=== PATIENT | female | born 1980 | race African-American/Black ===

== ENCOUNTER 2018-05-20 12:42 | Day surgery (SDC) | payer OTHER ==
[2018-05-19 17:13] VITALS: BMI 38.9
--- NOTE | 2018-05-20 13:02 | HP ---
History & Physical Update - History History: No Change - Physical Physical: No Change - Assessment Assessment: No Change - Plan Plan: No Change (Agree with H&P from 05/19/18 - incomplete , plan for suction D&C.)
[2018-05-20] MEDS ORDERED: ACETAMINOPHEN 325 MG TABLET (FP) PO PRN (13:05)
[2018-05-20] MEDS ORDERED: IBUPROFEN 800 MG/8 ML IJ IVPB PRN (13:05)
[2018-05-20] MEDS ORDERED: LACTATED RINGERS SOLUTION 1,000 ML IV SCH (13:15)
[2018-05-20 13:25] LABS: HEMATOCRIT 31.7 % (32.4-45.2); HEMOGLOBIN 10.2 GM/dL (10.7-15.3); MCH 26.8 pg (25.7-33.7); MCHC 32.1 g/dl (32.0-36.0); MEAN CELL VOLUME 83.6 fl (80-96); MEAN PLT VOLUME 7.3 fl (7.5-11.1); PLATELET COUNT 252 K/MM3 (134-434); RDW 14.6 % (11.6-15.6); WHITE BLOOD COUNT 5.3 K/mm3 (4.0-10.0)
[2018-05-20] MEDS ORDERED: ceFAZolin 2 GRAM PREMIX BAG IVPB ONE (13:30)
[2018-05-20 13:58] LABS: ALBUMIN 3.5 g/dl (3.4-5.0); ALK PHOS 60 U/L (45-117); ANION GAP 9 MMOL/L (8-16); BILIRUBIN,TOTAL 0.2 mg/dL (0.2-1); BLOOD UREA NITROGEN 10 mg/dL (7-18); CALCIUM 8.8 mg/dL (8.5-10.1); CHLORIDE 108 mmol/L (98-107); CO2 24 mmol/L (21-32); CREATININE 0.9 mg/dL (0.55-1.3); GLUCOSE,RANDOM 85 mg/dL (74-106); POTASSIUM 3.9 mmol/L (3.5-5.1); SGOT/AST 14 U/L (15-37); SGPT/ALT 15 U/L (13-61); SODIUM 141 mmol/L (136-145)
[2018-05-20] MEDS ORDERED: MIDAZOLAM HCL 2 MG/2 ML SINGLE DOSE VIAL ONE (14:02)
[2018-05-20] MEDS ORDERED: ceFAZolin SODIUM 1 GM VIAL IVPB ONE (14:19)
[2018-05-20] MEDS ORDERED: PROPOFOL 20 ML ONE ×2 (14:19→14:31)
--- NOTE | 2018-05-20 14:48 | OP ---
Operative Note - Note: Operative Date: 05/20/18 ([id number]) Pre-Operative Diagnosis: incomplete Operation: suction D&C Findings: enlarged fibroid uterus retained products of conception Surgeon: Reema Wang Anesthesia: General (with LMA) Specimens Removed: products of conception Estimated Blood Loss (mls): 10 Operative Report Dictated: Yes
[2018-05-20] MEDS ORDERED: KETOROLAC TROMETHAMINE 30 MG/1 ML VIAL ONE (14:54)
[2018-05-20] MEDS ORDERED: oxyCODONE HCL 5 MG TABLET PO PRN (14:56)
[2018-05-20] MEDS ORDERED: ONDANSETRON 4 MG/2 ML VIAL IVPUSH PRN (14:56)
--- NOTE | 2018-05-20 15:13 | OP ---
DATE OF OPERATION: 05/20/2018 PREOPERATIVE DIAGNOSIS: Incomplete . POSTOPERATIVE DIAGNOSIS: Incomplete . PROCEDURE: Suction dilatation and curettage. SURGEON: Reema Wang DO ANESTHESIA: LMA. COMPLICATIONS: None. ESTIMATED BLOOD LOSS: 10 mL SPECIMENS REMOVED: Products of conception. DISPOSITION: Stable to PACU. COUNT: Sponge and instrument count reported to be correct. BRIEF HISTORY AND PROCEDURE: Patient is a 37-year-old female who had been seen in the office with positive test, and upon multiple ultrasound and blood work examinations, was found to have a missed . The patient initially elected to undergo spontaneous resolution and declined surgical intervention. However, after several weeks on ultrasound on May 19, 2018, was found to have retained products of conception, the patient elected to undergo a D&C procedure at this time. Consents were signed in the office that day. The patient was admitted to the hospital on May 20, 2018. Consents were reconfirmed. The patient was taken to the operating room. She was given LMA anesthesia and placed in the dorsal lithotomy position. Two grams of Ancef were administered, and a hard timeout was performed. She was prepped and draped in the usual fashion. A speculum was placed inside the vagina. The cervix was easily visualized and grasped with a single-tooth tenaculum, and the cervix was dilated to accommodate a size 7 suction curette which was advanced to the fundus of the uterus. Several passes of the suction curette were completed and 1 pass with the sharp curette, and all 4 ca of the uterus revealed adequate uterine cry. One final pass of the suction curette was completed at this time. All instruments were then removed from the vagina. Sponge and instrument counts were reported to be correct. Minimal bleeding was noted from the os, and tenaculum sites were hemostatic. The patient awoke from anesthesia in stable condition, recovering in the PACU at the time of this dictation. REEMA WANG DO /[id number]
[2018-05-20 17:54] VITALS: BP 118/63; PULSE 90
[2018-05-20 18:01] VITALS: TEMP 98
--- NOTE | 2018-05-24 15:18 | PATH ---
Surgical Pathology Report Patient Name: JACI LIN Med. Rec. #: [id number] /Age/Gender: 1980 (Age: 37) / F Account: [id number] Location: [facility] Taken: 05/20/2018 Received: 05/21/2018 Reported: 05/24/2018 Physicians: Reema Wang M.D. Specimen(s) Received PRODUCTS OF CONCEPTION Clinical History Incomplete Final Diagnosis PRODUCTS OF CONCEPTION, DILATION AND CURETTAGE: SCANT NECROTIC CHORIONIC VILLI, ACUTELY INFLAMED DECIDUA, AND GESTATIONAL ENDOMETRIUM CONSISTENT WITH PRODUCTS OF CONCEPTION. BENIGN CERVICAL TISSUE. Electronically Signed Izzy Wiggins M.D. Gross Description Received in formalin, labeled "products of conception", are multiple dark brown soft tissue measuring 3.5 x 3.5 x 0.3 cm in aggregate. The specimen is entirely submitted in 3 cassettes. SCOTTIE/05/21/2018 rama/05/21/2018
== END 2018-05-20 18:16 | disposition home or self-care (01) ==
LOC: JASU-SURG 12:42 → JOR 12:42 → JASU-SURG 18:16
PROVIDERS: ATTEND Obstetrics & Gynecology
PROC: 10D17ZZ Extraction of Products of Conception, Retained, Via Natural or Artificial Opening (ICD-10-PCS; principal; 2018-05-20 13:30)
DX: O03.4 Incomplete spontaneous abortion without complication (principal)
CPT/HCPCS: 36415; 80053; 84702; 85027; 86850; 86900; 86901; 88305-TC; 94760

== ENCOUNTER 2018-06-21 10:38 | Inpatient (IN) | payer OTHER ==
[2018-06-18 08:05] VITALS: BMI 38.9
[2018-06-21 12:07] LABS: BASO % 0.3 % (0-2.0); EOS % 0.7 % (0-4.5); HEMATOCRIT 21.2 % (32.4-45.2); LYMPH % 15.9 % (8-40); MCH 25.7 pg (25.7-33.7); MCHC 32.8 g/dl (32.0-36.0); MEAN CELL VOLUME 78.3 fl (80-96); MEAN PLT VOLUME 6.5 fl (7.5-11.1); MONO % 4.8 % (3.8-10.2); NEUT % 78.3 % (42.8-82.8); PLATELET COUNT 254 K/MM3 (134-434); RBC 2.71 M/mm3 (3.60-5.2); RDW 15.4 % (11.6-15.6); WHITE BLOOD COUNT 6.5 K/mm3 (4.0-10.0)
[2018-06-21 12:39] LABS: ALBUMIN 3.4 g/dl (3.4-5.0); ALK PHOS 66 U/L (45-117); ANION GAP 8 MMOL/L (8-16); BILIRUBIN,TOTAL 0.2 mg/dL (0.2-1); BLOOD UREA NITROGEN 13 mg/dL (7-18); CALCIUM 8.8 mg/dL (8.5-10.1); CHLORIDE 104 mmol/L (98-107); CO2 27 mmol/L (21-32); CREATININE 0.9 mg/dL (0.55-1.3); GLUCOSE,RANDOM 95 mg/dL (74-106); POTASSIUM 3.7 mmol/L (3.5-5.1); SGOT/AST 19 U/L (15-37); SGPT/ALT 18 U/L (13-61); SODIUM 139 mmol/L (136-145); TOT PROT 7.1 g/dl (6.4-8.2)
--- NOTE | 2018-06-21 13:23 | HP ---
Admitting History and Physical - Admission Chief Complaint: Abnormal bleeding, for surgery History of Present Illness: Pt is a 38 y/o female with known enlarged fibroid uterus who was scheduled for abdominal myomectomy several weeks past, however was found to be . The resulted in a missed and a suction D&C was performed in early May. The patient continued to have bleeding on and off throughout the month and was suspected to have retained products of conception as her test was still positive. The patient was then scheduled for a suction D&C and abdominal myomectomy. Upon admission to hospital for surgery patient was found to be anemic with Hgb 7.1 and Hct 21. History Source: Patient, Medical Record - Past Medical History Cardiovascular: No: HTN Pulmonary: No: COPD Gastrointestinal: No: GERD Reproductive: No: Ectopic ...LMP: 03/11/18 ...LMP Comment: bleeding since d&C ...: No (s/p missed , suction D&C performed may but now w/ retained POC) Heme/Onc: Yes: Anemia Psych: No: Anxiety, Bipolar, Depression - Past Surgical History Additional Past Surgical History: D&C - Smoking History Smoking history: Never smoked Aproximately how many cigarettes per day: 0 - Alcohol/Substance Use Hx Alcohol Use: Yes (socially) - Social History Usual Living Arrangement: Yes: With Spouse ADL: Independent History of Recent Travel: No Home Medications - Allergies Allergies/Adverse Reactions: Allergies Allergy/AdvReac Type Severity Reaction Status Date / Time No Known Allergies Allergy Verified 06/21/18 11:56 - Home Medications Home Medications: Ambulatory Orders Albuterol Sulfate [Proair Hfa] 8.5 gm IH BID 05/19/18 Acetaminophen [Tylenol -] 500 mg PO Q8H 06/18/18 Review of Systems - Review of Systems Constitutional: reports: No Symptoms Eyes: reports: No Symptoms HENT: reports: No Symptoms Neck: reports: No Symptoms Cardiovascular: reports: No Symptoms Respiratory: reports: No Symptoms Gastrointestinal: reports: No Symptoms Genitourinary: reports: Vaginal Bleeding Neurological: reports: Dizziness Psychiatric: reports: No Symptoms Physical Examination Vital Signs: Vital Signs Temperature 99.2 F 06/21/18 11:54 Pulse Rate 98 H 06/21/18 11:54 Respiratory Rate 16 06/21/18 11:54 Blood Pressure 109/78 06/21/18 11:54 O2 Sat by Pulse Oximetry (%) 100 06/21/18 11:54 Constitutional: Yes: Well Nourished, No Distress, Calm Eyes: Yes: Conjunctiva Clear, EOM Intact HENT: Yes: Atraumatic Neck: Yes: Supple Cardiovascular: Yes: Tachycardia Respiratory: Yes: WNL Gastrointestinal: Yes: Soft, Other (large fibroid uterus palpated) Renal/: Yes: Vaginal Bleeding Neurological: Yes: Alert, Oriented Psychiatric: Yes: Alert, Oriented Labs: CBC, BMP 06/21/18 11:40 06/21/18 11:40 Problem List - Problems (1) Vaginal bleeding Code(s): N93.9 - ABNORMAL UTERINE AND VAGINAL BLEEDING, UNSPECIFIED (2) Retained products of conception Code(s): WWC0224 - (3) Leiomyoma Code(s): D21.9 - BENIGN NEOPLASM OF CONNECTIVE AND OTHER SOFT TISSUE, UNSP Assessment/Plan 38 y/o initially admitted for D&C and abdominal myomectomy for retained products of conception and fibroids found to have Hgb 7.0 upon admission and admits to syncopal episode yesterday. Discussed with anesthesia - will need to transfuse and postpone surgery until tomorrow. Plan for admission, 2 units PRBC overnight, recheck CBC in a.m. will postpone surgery until tomorrow/after blood transfusion +BHCG - due to retained products, not new , planning for suction D&C NPO after midnight
[2018-06-21] MEDS ORDERED: ACETAMINOPHEN 500 MG TABLET (FP) PO ONE (16:00)
[2018-06-21] MEDS ORDERED: IBUPROFEN 400 MG TABLET (FP) PO ONE (16:00)
[2018-06-21] MEDS: ACETAMINOPHEN 500 MG TABLET (FP) PO PRN (16:57)
[2018-06-21] MEDS ORDERED: IBUPROFEN 400 MG TABLET (FP) PO PRN (17:03)
[2018-06-21] MEDS: ALBUTEROL SO4 8 GM HFA INHALER IH SCH (21:03)
[2018-06-22] MEDS ORDERED: LACTATED RINGERS SOLUTION 1,000 ML/1,000 ML INFUS.BAG IV SCH (06:00)
[2018-06-22 07:38] LABS: BASO % 0.4 % (0-2.0); EOS % 2.1 % (0-4.5); HEMOGLOBIN 8.1 GM/dL (10.7-15.3); LYMPH % 18.3 % (8-40); MCH 26.7 pg (25.7-33.7); MCHC 33.8 g/dl (32.0-36.0); MEAN PLT VOLUME 6.7 fl (7.5-11.1); MONO % 6.4 % (3.8-10.2); NEUT % 72.8 % (42.8-82.8); PLATELET COUNT 289 K/MM3 (134-434); RBC 3.04 M/mm3 (3.60-5.2); RDW 15.5 % (11.6-15.6); WHITE BLOOD COUNT 6.2 K/mm3 (4.0-10.0)
[2018-06-22 07:44] LABS: INR 1.21 (0.83-1.09); PROTHROMBIN TIME (PATIENT) 14.3 SEC (9.7-13.0)
[2018-06-22 07:47] LABS: ACTIVATED PTT 26.4 SECONDS (25.2-36.5)
[2018-06-22] MEDS ORDERED: DEXAMETHASONE SOD PHOSPHATE/PF 10 MG/ML SDV ONE (10:33)
[2018-06-22] MEDS ORDERED: BUPIVACAINE HCL/PF 0.25% (2.5MG/ML) 10 ML VIAL ONE (10:34)
[2018-06-22] MEDS ORDERED: MIDAZOLAM HCL 2 MG/2 ML SINGLE DOSE VIAL ONE ×3 (10:37→11:45)
[2018-06-22] MEDS ORDERED: oxyCODONE HCL 5 MG TABLET PO PRN ×2 (10:56)
[2018-06-22] MEDS ORDERED: PROMETHAZINE HCL 25 MG/1 ML VIAL IVPB PRN (10:56)
[2018-06-22] MEDS: ALBUTEROL SO4 8 GM HFA INHALER IH SCH ×2 (10:58→22:20)
[2018-06-22] MEDS ORDERED: LACTATED RINGERS SOLUTION 1,000 ML IV SCH (11:00)
[2018-06-22] MEDS ORDERED: PROPOFOL 20 ML ONE (11:45)
[2018-06-22] MEDS ORDERED: LIDOCAINE HCL/PF 2% SDV 5ML VIAL ONE (11:46)
[2018-06-22] MEDS ORDERED: KETOROLAC TROMETHAMINE 30 MG/1 ML VIAL ONE (11:47)
[2018-06-22] MEDS ORDERED: DEXAMETHASONE SOD PHOSPHATE 4 MG/1 ML VIAL ONE (11:47)
[2018-06-22] MEDS ORDERED: ceFAZolin SODIUM 1 GM VIAL IVPB ONE (12:30)
[2018-06-22] MEDS ORDERED: ceFAZolin SODIUM 1 GM VIAL ONE ×2 (12:31→17:04)
[2018-06-22] MEDS ORDERED: ROCURONIUM BROMIDE 50 MG/5 ML VIAL ONE (13:40)
--- NOTE | 2018-06-22 15:16 | OP ---
Operative Note - Note: Operative Date: 06/22/18 (dictation [id number]) Pre-Operative Diagnosis: Fibroid uterus, retained products of conception, AUB Operation: suction D&C. Abdominal myomectomy Findings: enlarged fibroid uterus normal b/l tubes and ovaries Post-Operative Diagnosis: Same as Pre-op Surgeon: Reema Wang Corporate Administrative Assistant: Maribell Maria Anesthesiologist/MICROSOFT APPLICATION DEVELOPER: Lina Thompson Anesthesia: General Specimens Removed: fibroids, products of conception Estimated Blood Loss (mls): 750
[2018-06-22] MEDS ORDERED: NEOSTIGMINE METHYLSULFATE 0.5 MG/1 ML - 10 ML MDV ONE (15:21)
[2018-06-22] MEDS ORDERED: GLYCOPYRROLATE 0.2 MG/1 ML VIAL ONE (15:22)
[2018-06-22] MEDS ORDERED: CEFAZOLIN 2 GM/D5W 2 GM/50 ML ML IVPB SCH (15:45)
[2018-06-22] MEDS ORDERED: ACETAMINOPHEN INJECTION 100 ML IVPB ONE (16:10)
[2018-06-22] MEDS ORDERED: HYDROmorphone *PCA* 10MG/50ML DISP.SYRIN PCA ONE (16:10)
[2018-06-22] MEDS: ACETAMINOPHEN 500 MG TABLET (FP) PO PRN (16:15)
[2018-06-22] MEDS ORDERED: HYDROmorphone *PCA* 10MG/50ML DISP.SYRIN PCA SCH (16:15)
[2018-06-22] MEDS ORDERED: ALBUTEROL SO4 0.083% IH SOL 2.5 MG/3 ML VIAL.NEB. NEB PRN (16:16)
--- NOTE | 2018-06-22 16:21 | OP ---
DATE OF OPERATION: 06/22/2018 PREOPERATIVE DIAGNOSIS: Retained products of conception, large fibroid uterus. PROCEDURE: Suction dilatation and curettage. SURGEON: Reema Wang DO ANESTHESIA: General. COMPLICATIONS: None. ESTIMATED BLOOD LOSS: 750 mL SPECIMENS REMOVED: Included multiple fibroids, uterus; products of conception. COUNTS: Sponge, needle, and instrument count correct. DISPOSITION: Stable to PACU. BRIEF HISTORY AND PROCEDURE: Patient is a 38-year-old female who had been seen in the office with a known large fibroid uterus and a recent D&C for a missed . The patient continued to have abnormal bleeding and a positive test which was consistent with retained products. Patient was scheduled to have a suction D&C as well as an abdominal myomectomy. The patient was admitted to [facility] on June 21, 2018, and due to severe anemia, was transfused 2 units of packed red blood cells overnight, and on the morning of June 22, 2018, hemoglobin was 8.1 and hematocrit was 24. Patient received 1 more unit prior to entering the operating room. Consents had been confirmed in the office and signed in the office were confirmed before starting the procedure. She was then taken back to the operating room. She was placed in the dorsal lithotomy position and intubated and prepped and draped in the usual sterile fashion. A hard timeout was performed. Attention first was turned below where a speculum was placed inside the vagina. The anterior lip of the cervix was grasped with a tenaculum, and the cervix was dilated to accommodate a size 9 suction curette which was advanced into the uterus. Multiple passes of the suction curette were completed. Multiple passes with a sharp curette in all 4 ca of the uterus were then completed until adequate uterine cry was appreciated. One final pass of the suction curette was completed until it appeared that all the uterine contents had been removed. The specimen was sent to pathology. A Leal catheter was then placed under sterile conditions, and attention was then turned to the abdomen where a Pfannenstiel skin incision was created in the skin with a scalpel and carried down to the underlying layer of rectus fascia sharply, the fascia was incised on either side of the midline sharply and extended in a superolateral direction. The fascia was tented upward and dissected off the underlying layer of rectus muscle sharply. The musculature was identified and laterally, and the peritoneum was entered sharply to allow for adequate room for the procedure. The uterus was noted to be large and bulky with multiple fibroids, the largest being lower uterine segment anterior. Secondary to the size of the uterus, the rectus muscle on either side was incised laterally approximately 2 inches on either side to make adequate room. Then, using a towel clip, the fibroid on the anterior portion of the uterus was grasped, and the uterus was elevated out of the abdomen. Several fibroids were noted which were removed in the usual fashion. We began anteriorly where two large dominant fibroids were appreciated. The uterine serosa was incised, and the fibroids were shelled out of their capsules sharply. Posteriorly, approximately 3 large fibroids were noted. A similar fashion to remove those fibroids was completed, and any other small fibroids which were appreciated were excised in the same manner. A total of 12 fibroids were removed at this time. The endometrial cavity was noted to be bulging into the surgical field after all fibroids were removed , but it was not entered. ll defects were reapproximated using 2-0 and 0 Vicryl suture, and the uterine serosa was reapproximated using a 2-0 V-Loc on the majority of the uterus until adequate hemostasis was achieved. Interceed was placed on the posterior and anterior portion of the uterus. The bilateral tubes and ovaries were examined and noted to be within normal limits. The uterus was placed back in the abdomen. Sponge, needle, and instrument count was reported to be correct at this time. The peritoneum was reapproximated using 3-0 Vicryl in a running fashion. The musculature incisions were repaired with 3-0 Vicryl, and the muscles was reapproximated in 2 interrupted sutures. The fascia was reapproximated using 1 Vicryl in a running fashion. Subcutaneous tissue was irrigated and reapproximated in a running fashion. The skin was reapproximated in a subcuticular fashion. Steri Strips were applied. Sponge, needle and instrument counts were reported to be correct after the case. The patient tolerated the procedure well, is recovering in stable condition in the PACU after the procedure. REEMA WANG DO /[id number] [facility]
[2018-06-22] MEDS ORDERED: ceFAZolin 2 GRAM PREMIX BAG IVPB SCH (17:00)
[2018-06-22] MEDS: CEFAZOLIN 2 GM/D5W 2 GM/50 ML ML IVPB SCH (17:05)
[2018-06-22] MEDS: LACTATED RINGERS SOLUTION 1,000 ML/1,000 ML INFUS.BAG IV SCH (17:35)
--- NOTE | 2018-06-22 17:52 | SURG ---
Surgery Line Leader Note Line Leader: Maribell Maria PA-C (Suzy) Date of Service: 06/22/18 Diagnosis: Fibroid uterus, retained products of conception, AUB Procedure: Open Abdominal myomectomy I was present for the entirety of the operative procedure. For further detail, please refer to operative report. Visit type - Case Type Case Type: Scheduled - Emergency Emergency Visit: No - New patient This patient is new to me today: Yes Date on this admission: 06/22/18 - Critical Care Critical Care patient: No
[2018-06-22 19:27] LABS: HEMOGLOBIN 8.5 GM/dL (10.7-15.3); RDW 15.1 % (11.6-15.6); WHITE BLOOD COUNT 17.6 K/mm3 (4.0-10.0)
[2018-06-22 19:32] LABS: HEMATOCRIT 24.2 % (32.4-45.2); MCH 27.9 pg (25.7-33.7); MCHC 34.9 g/dl (32.0-36.0); MEAN CELL VOLUME 79.9 fl (80-96); MEAN PLT VOLUME 7.1 fl (7.5-11.1); PLATELET COUNT 225 K/MM3 (134-434); RBC 3.03 M/mm3 (3.60-5.2)
[2018-06-22] MEDS ORDERED: ONDANSETRON 4 MG/2 ML VIAL IVPUSH PRN (20:15)
[2018-06-22 20:58] LABS: PLATELET ESTIMATE ADEQUATE
[2018-06-23] MEDS ORDERED: SODIUM CHLORIDE 500 ML IV STA (01:19)
[2018-06-23] MEDS: CEFAZOLIN 2 GM/D5W 2 GM/50 ML ML IVPB SCH ×2 (01:36→09:45)
--- NOTE | 2018-06-23 05:15 | PN ---
Progress Note (SOAP) - Subjective Chief Complaint: Pt without complaints - Current Medications Current Medications: Active Medications Acetaminophen (Tylenol -) 1,000 mg PO Q6H PRN PRN Reason: PAIN LEVEL 1-5 Last Admin: 06/22/18 16:15 Dose: 1,000 mg Acetaminophen (Ofirmev Injection -) 1,000 mg IVPB Q6H PRN PRN Reason: PAIN LEVEL 6-10 Albuterol Sulfate (Ventolin Hfa Inhaler -) 2 puff IH BID [facility] Last Admin: 06/22/18 10:58 Dose: 2 inhaler Albuterol Sulfate (Ventolin 0.083% Nebulizer Soln -) 1 amp NEB Q4H PRN PRN Reason: SHORT OF BREATH/WHEEZING Last Admin: 06/22/18 16:10 Dose: 1 amp Enoxaparin Sodium (Lovenox -) 40 mg SQ DAILY [facility] Fentanyl (Sublimaze Injection -) 50 mcg IVPUSH [id number] PRN PRN Reason: PAIN-PACU ORDER X 4 DOSES ONLY Hydromorphone HCl (Dilaudid Embossing Machine Operator Helper -) 10 mg BRANDING MACHINE OPERATOR BRANDING MACHINE OPERATOR [facility]; Protocol Stop: 06/29/18 16:12 Last Admin: 06/22/18 16:15 Dose: 10 mg Cefazolin Sodium/Dextrose (Ancef 2 Gm Premixed Ivpb -) 2 gm in 50 mls @ 100 mls /hr IVPB Q8H [facility] Stop: 06/23/18 09:29 Last Admin: 06/23/18 01:36 Dose: 100 mls/hr Lactated Ringer's (Lactated Ringers Solution) 1,000 ml in 1,000 mls @ 125 mls/ hr IV ASDIR [facility] Last Admin: 06/22/18 17:35 Dose: 0 mls Ibuprofen (Motrin -) 800 mg PO Q8H PRN PRN Reason: FEVER Ondansetron HCl (Zofran Injection) 4 mg IVPUSH Q6H PRN PRN Reason: NAUSEA Promethazine HCl (Phenergan Injection -) 12.5 mg IVPB Q6H PRN PRN Reason: NAUSEA-FOR RESCUE AFTER 15 MIN - Objective Vital Signs: Vital Signs Temperature 98.4 F 06/23/18 01:21 Pulse Rate 105 H 06/23/18 01:21 Respiratory Rate 18 06/23/18 01:21 Blood Pressure 118/72 06/23/18 01:21 O2 Sat by Pulse Oximetry (%) 100 06/22/18 21:00 Constitutional: Yes: Well Nourished, No Distress Wound/Incision: Yes: Clean/Dry, Well Approximated, Dressing Dry and Intact Labs Lab Results: CBC, BMP 06/22/18 18:45 06/21/18 11:40 Assessment/Plan POD1 SP myomectomy stable SP tranfusions Plan cbc continue present management
[2018-06-23 07:51] LABS: ANION GAP 7 MMOL/L (8-16); BLOOD UREA NITROGEN 21 mg/dL (7-18); CALCIUM 7.1 mg/dL (8.5-10.1); CHLORIDE 104 mmol/L (98-107); CO2 24 mmol/L (21-32); CREATININE 1.2 mg/dL (0.55-1.3); GLUCOSE,RANDOM 165 mg/dL (74-106); POTASSIUM 4.5 mmol/L (3.5-5.1); SODIUM 135 mmol/L (136-145)
[2018-06-23] MEDS ORDERED: LACTATED RINGERS SOLUTION 1,000 ML IV SCH (08:30)
[2018-06-23] MEDS: ACETAMINOPHEN 1000 MG/100 ML VIAL (NON FORMULARY) IVPB PRN ×3 (09:02→23:44)
[2018-06-23 09:18] LABS: MCH 27.6 pg (25.7-33.7); MCHC 34.5 g/dl (32.0-36.0); MEAN CELL VOLUME 80.1 fl (80-96); MEAN PLT VOLUME 7.1 fl (7.5-11.1); PLATELET COUNT 193 K/MM3 (134-434); RBC 2.12 M/mm3 (3.60-5.2); RDW 15.3 % (11.6-15.6)
[2018-06-23 09:24] LABS: HEMOGLOBIN 5.9 GM/dL (10.7-15.3)
[2018-06-23] MEDS ORDERED: ENOXAPARIN NA (PORCINE) 40 MG/0.4 ML DISP.SYRIN SQ SCH (10:00)
[2018-06-23] MEDS: ALBUTEROL SO4 8 GM HFA INHALER IH SCH ×2 (10:29→22:35)
--- NOTE | 2018-06-23 10:37 | PN ---
Progress Note, Physician History of Present Illness: Pt with some abdominal tenderness and some nausea. Otherwise no complaints. scant VB overnight. Passed flatus overnight. Adequate clear yellow urine output this a.m. One episode of emesis this a.m. with belching, feels better/ improved now. No CP/SOB/dizziness. Feels sleepy. Hgb 5.9 this a.m. - Current Medication List Current Medications: Active Medications Acetaminophen (Tylenol -) 1,000 mg PO Q6H PRN PRN Reason: PAIN LEVEL 1-5 Last Admin: 06/22/18 16:15 Dose: 1,000 mg Acetaminophen (Ofirmev Injection -) 1,000 mg IVPB Q6H PRN PRN Reason: PAIN LEVEL 6-10 Last Admin: 06/23/18 09:02 Dose: 1,000 mg Albuterol Sulfate (Ventolin Hfa Inhaler -) 2 puff IH BID [facility] Last Admin: 06/23/18 10:29 Dose: 2 puff Albuterol Sulfate (Ventolin 0.083% Nebulizer Soln -) 1 amp NEB Q4H PRN PRN Reason: SHORT OF BREATH/WHEEZING Last Admin: 06/22/18 16:10 Dose: 1 amp Hydromorphone HCl (Dilaudid Money Manager -) 10 mg CUSTOMER MANAGEMENT SPECIALIST CUSTOMER MANAGEMENT SPECIALIST MAURO; Protocol Stop: 06/29/18 16:12 Last Admin: 06/22/18 16:15 Dose: 10 mg Lactated Ringer's (Lactated Ringers Solution) 1,000 ml in 1,000 mls @ 125 mls/ hr IV ASDIR MAURO Last Admin: 06/22/18 17:35 Dose: 0 mls Ibuprofen (Motrin -) 800 mg PO Q8H PRN PRN Reason: FEVER Ondansetron HCl (Zofran Injection) 4 mg IVPUSH Q6H PRN PRN Reason: NAUSEA Last Admin: 06/23/18 10:27 Dose: 4 mg Promethazine HCl (Phenergan Injection -) 12.5 mg IVPB Q6H PRN PRN Reason: NAUSEA-FOR RESCUE AFTER 15 MIN - Objective Vital Signs: Vital Signs Temperature 98.6 F 06/23/18 09:00 Pulse Rate 104 H 06/23/18 09:00 Respiratory Rate 20 06/23/18 09:00 Blood Pressure 113/62 06/23/18 09:00 O2 Sat by Pulse Oximetry (%) 100 06/22/18 21:00 Constitutional: Yes: Well Nourished, Calm HENT: Yes: WNL Neck: Yes: Supple Cardiovascular: Yes: Tachycardia Respiratory: Yes: Regular Gastrointestinal: Yes: Soft, Tenderness (appropriate post surgical tenderness), Vomiting (one episode of vomiting overnight). No: Distention Extremities: Yes: WNL, Other (b/l SCDs) Edema: No Wound/Incision: Yes: Clean/Dry, Well Approximated Neurological: Yes: Alert, Oriented Psychiatric: Yes: Alert, Oriented Labs: CBC, BMP 06/23/18 09:00 06/23/18 06:00 INR, PTT INR 1.21 (0.83-1.09) H 06/22/18 07:00 Fibrinogen 453.0 mg/dL (238-498) 06/22/18 07:00 Problem List - Problems (1) Vaginal bleeding Code(s): N93.9 - ABNORMAL UTERINE AND VAGINAL BLEEDING, UNSPECIFIED (2) Retained products of conception Code(s): [id number] - (3) Leiomyoma Code(s): D21.9 - BENIGN NEOPLASM OF CONNECTIVE AND OTHER SOFT TISSUE, UNSP (4) Anemia Code(s): D64.9 - ANEMIA, UNSPECIFIED Qualifiers: Other causes of anemia: acute posthemorrhagic Assessment/Plan 38 y/o POD#1 s/p abdominal myomectomy severe anemia this a.m. will transfuse another 2 units PRBC clinically pt looks well - urine output adequate, vitals stable, mild tachycardia, passing flatus expect that Hgb drop is equilibration from surgery - has had 4 units PRBC so far if Hgb not improving as expected with transfusion will order CT scan to r/o hemoperitoneum Ice chips only for now continue with corrales catheter strict I/Os will monitor closely
[2018-06-23] MEDS: LACTATED RINGERS SOLUTION 1,000 ML/1,000 ML INFUS.BAG IV SCH ×2 (10:40→18:43)
--- NOTE | 2018-06-23 10:42 | PN ---
Progress Note (short form) - Note Progress Note: POD#1 Pt seen earlier this am around 8. Complains of some dizziness, nausea x1 overnight. Feels hungry and has passed flatus. No CP/SOB. Vital Signs Period Temp Pulse Resp BP Sys/[place]ont Pulse Ox Last 24 Hr 98.4 F-98.9 F 75-108 14-20 98-130/50-74 100-100 UOP-400 ml overnight plus approximately 300ml in corrales bag. Clear urine GEN: A&0x3, sitting upright in bed CV:RR tachycardic Lungs: CTA b/l anteriorly ABD: soft, non-distended, inc tenderness. Dressing c/d/i. LE: SCD/JU in place. No calf tenderness. CBC, BMP //18 09:00 12//18 06:00 A/P: 38 yo female POD#1 s/p suction D&C. Abdominal myomectomy for fibroids Pt seen later this am with Dr. Wang. Her H&H from this am had dropped since last pm. 500ml LR bolus given and blood ordered 2 units PRBC Holding on her lovenox Continue corrales to monitor uop Will check repeat H&H later today Npo for now except for ice chips, IV Zofran for nausea/emesis.
--- NOTE | 2018-06-23 11:22 | PN ---
Progress Note (short form) - Note Progress Note: Anesthesia POD#1 S/P Abdominal Myomectomy under GA and TAP block VSS,barely using IV DENTAL SCHEDULING COORDINATOR,some nasea yesterday. Mild Pain. A/P Getting PRBC for drop in HG 5.9. DC DENTAL SCHEDULING COORDINATOR if she can take PO meds. Monica Rashid MD.
[2018-06-23 17:43] LABS: BASO % 0.1 % (0-2.0); EOS % 0.1 % (0-4.5); HEMATOCRIT 22.6 % (32.4-45.2); LYMPH % 9.2 % (8-40); MCH 29.4 pg (25.7-33.7); MCHC 35.3 g/dl (32.0-36.0); MEAN CELL VOLUME 83.3 fl (80-96); MEAN PLT VOLUME 6.7 fl (7.5-11.1); MONO % 8.5 % (3.8-10.2); NEUT % 82.1 % (42.8-82.8); PLATELET COUNT 183 K/MM3 (134-434); RBC 2.71 M/mm3 (3.60-5.2); RDW 15.6 % (11.6-15.6); WHITE BLOOD COUNT 10.4 K/mm3 (4.0-10.0)
[2018-06-23] MEDS ORDERED: PCA PUMP KEY 1 EACH EACH ONE ×2 (19:23→20:10)
[2018-06-23] MEDS ORDERED: oxyCODONE HCL 5 MG TABLET PO PRN ×2 (19:39→19:40)
[2018-06-23] MEDS ORDERED: HYDROmorphone HCl 2 MG/ML VIAL IVPB PRN (19:40)
--- NOTE | 2018-06-23 21:08 | PN ---
Progress Note (short form) - Note Progress Note: Pt doing well. S/P 2 more units PRBC today. Hgb up to 8.0 - is the expected rise. No more nausea. Leal draining adequate clear yellow urine. No other issues. Pain control overnight repeat CBC overnight, if stable, to give lovenox continue current management Problem List - Problems (1) Vaginal bleeding Code(s): N93.9 - ABNORMAL UTERINE AND VAGINAL BLEEDING, UNSPECIFIED (2) Retained products of conception Code(s): [id number] - (3) Leiomyoma Code(s): D21.9 - BENIGN NEOPLASM OF CONNECTIVE AND OTHER SOFT TISSUE, UNSP (4) Anemia Code(s): D64.9 - ANEMIA, UNSPECIFIED Qualifiers: Other causes of anemia: acute posthemorrhagic
[2018-06-23 22:24] LABS: BASO % 0.2 % (0-2.0); EOS % 0.2 % (0-4.5); HEMATOCRIT 21.3 % (32.4-45.2); HEMOGLOBIN 7.5 GM/dL (10.7-15.3); LYMPH % 10.4 % (8-40); MCH 29.1 pg (25.7-33.7); MCHC 35.3 g/dl (32.0-36.0); MEAN CELL VOLUME 82.4 fl (80-96); MEAN PLT VOLUME 6.6 fl (7.5-11.1); MONO % 5.6 % (3.8-10.2); NEUT % 83.6 % (42.8-82.8); PLATELET COUNT 179 K/MM3 (134-434); RBC 2.58 M/mm3 (3.60-5.2); RDW 15.3 % (11.6-15.6)
[2018-06-24] MEDS: ACETAMINOPHEN 1000 MG/100 ML VIAL (NON FORMULARY) IVPB PRN (05:14)
--- NOTE | 2018-06-24 05:34 | PN ---
Progress Note (short form) - Note Progress Note: Pt with fever 101. No leukocytosis on most recent CBC. Will monitor, if continues to have fever will pursue workup. Awaiting another CBC this a.m. D/C Elvis Encourage ambulation, encourage IS use SCDs while in bed awaiting AM cbc for lovenox regular diet this a.m. Problem List - Problems (1) Vaginal bleeding Code(s): N93.9 - ABNORMAL UTERINE AND VAGINAL BLEEDING, UNSPECIFIED (2) Retained products of conception Code(s): [id number] - (3) Leiomyoma Code(s): D21.9 - BENIGN NEOPLASM OF CONNECTIVE AND OTHER SOFT TISSUE, UNSP (4) Anemia Code(s): D64.9 - ANEMIA, UNSPECIFIED Qualifiers: Other causes of anemia: acute posthemorrhagic
[2018-06-24] MEDS ORDERED: HYDROmorphone HCL 2 MG TABLET PO PRN (05:53)
[2018-06-24] MEDS ORDERED: ACETAMINOPHEN 325 MG TABLET (FP) PO PRN ×2 (05:53→18:15)
[2018-06-24] MEDS ORDERED: IBUPROFEN 800 MG/8 ML IJ IVPB PRN (05:56)
[2018-06-24 07:08] LABS: BASO % 0.3 % (0-2.0); EOS % 0.6 % (0-4.5); LYMPH % 12.4 % (8-40); MCH 28.2 pg (25.7-33.7); MCHC 33.7 g/dl (32.0-36.0); MEAN CELL VOLUME 83.7 fl (80-96); MEAN PLT VOLUME 6.7 fl (7.5-11.1); MONO % 6.6 % (3.8-10.2); NEUT % 80.1 % (42.8-82.8); PLATELET COUNT 156 K/MM3 (134-434); RBC 2.27 M/mm3 (3.60-5.2); WHITE BLOOD COUNT 8.9 K/mm3 (4.0-10.0)
[2018-06-24 08:23] LABS: HEMOGLOBIN 6.4 GM/dL (10.7-15.3)
[2018-06-24] MEDS: HYDROmorphone HCL 2 MG TABLET PO PRN (08:28)
[2018-06-24 09:17] LABS: INR 1.18 (0.83-1.09); PROTHROMBIN TIME (PATIENT) 13.9 SEC (9.7-13.0)
[2018-06-24 09:20] LABS: ACTIVATED PTT 25.2 SECONDS (25.2-36.5)
[2018-06-24 09:20] LABS: ANION GAP 8 MMOL/L (8-16); BLOOD UREA NITROGEN 11 mg/dL (7-18); CALCIUM 7.3 mg/dL (8.5-10.1); CHLORIDE 108 mmol/L (98-107); CO2 27 mmol/L (21-32); CREATININE 0.8 mg/dL (0.55-1.3); GLUCOSE,RANDOM 107 mg/dL (74-106); SODIUM 142 mmol/L (136-145)
--- NOTE | 2018-06-24 09:25 | PN ---
Progress Note (short form) - Note Progress Note: POD 2, s/p open abdominal myomectomy, suction D&C Pt seen and examined at 730AM. Pt reports doing well overnight. Had some pain in the late evenign after FISH AND GAME WARDEN was d/c'ed, pain resolved with Iv Dilaudid. Reports sleeping well through the night. Has not been oob, Corrales remains in place. Denies cp/sob, n/v/d, calf pain or edema, diziness, weakness, or palpitations. Has scant "light pink" Vaginal discharge. Vital Signs Temp 98.8 F 06/24/18 08:30 Pulse 108 H 06/24/18 08:30 Resp 20 06/24/18 08:30 BP 118/57 L 06/24/18 08:30 Pulse Ox 100 06/22/18 21:00 Intake & Output 06/23/18 06/23/18 06/24/18 11:59 23:59 11:59 Intake Total 2900 3100 Output Total 300 2900 1000 Balance 2600 200 -1000 Intake: IV 1750 2000 LR 1000 1800 Lactated Ringers Solution 1250 1,000 ml @ 75 mls/hr IV ASDIR MAURO Rx#:[id number] Normal Saline - 500 ml @ 500 500 mls/hr IV ASDIR STA Rx#:[id number] normal saline 200 IVPB 100 100 Oral 1050 300 Packed Cells 700 Output: Urine 300 2900 1000 Corrales 300 2900 1000 Other: Voiding Method Indwelling Catheter Indwelling Catheter CBC, BMP 06/24/18 06:00 06/24/18 08:30 Gen: awake, alert, nad Resp: unlabored, cta b/l CV: tachy to high 90s/low 100s, regular rhythm, s1s2 Abdo: soft, +TTP at lower abdomen appropriate to status. Incision c/d/i, no palpable surrounding hematoma or drainage from incision. Ext: scds in place and on, no calf tenderness 38 y/o F w/ PMHx fibroids, admitted 06/21 after OR cancelled due to anemia (6.4/ 21.2), s/p 6 units total of pRBCS (2 units 06/21, 06/22, 06/23), now POD2, s/p open abdominal hysterectomy and d&c. CBC this AM with drop in hemoglobin despite receiving 2 units pRBC yesterday. Concern for uterine/abdominal bleed. Pt down for stat CT w/ and without IV contrast Stat T&S NPO Continue to hold AC Continue IVF Keep corrales in place, monitor I&Os Possible OR vs IR for control of bleeding pending CT scan images above d/w pt who understands and agrees with plan for CT. RN aware Plan d/w attending Dr Wang
[2018-06-24] MEDS: ALBUTEROL SO4 8 GM HFA INHALER IH SCH ×2 (10:03→21:31)
[2018-06-24] MEDS ORDERED: ACETAMINOPHEN 1000 MG/100 ML VIAL (NON FORMULARY) IVPB ONE (11:50)
--- NOTE | 2018-06-24 12:14 | PN ---
Progress Note (short form) - Note Progress Note: CT abdo/pelvis with and without contrast reviewed with Radiologist (Dr Fallon), no active bleeding appreciated at this time. Pt back on floor after Ct, stable. Receiving unit 1/2 of pRBC's currently. Attending to discuss case with Dr Bran (IR) regarding any further potential IR interventions. Hematology consult placed as pt has received large blood volume replacement. Medicine consult placed for possible Pneumonia, + R middle lobe infiltrate on CT. Extensive discussion with pt regarding above, agrees with plan. Above d/w attending Dr Wang
[2018-06-24] MEDS: HYDROmorphone HCl 2 MG/ML VIAL IVPB PRN ×2 (12:51→18:41)
--- NOTE | 2018-06-24 13:22 | CONSULT ---
Consultation: REQUESTING PROVIDER: CONSULT REQUEST: We have been asked to medically evaluate this patient for pneumonia. HISTORY OF PRESENT ILLNESS: Pt is a 38 y/o F with PMH asthma who presented to the hospital for myomectomy. Procedure was postponed because of anemia. Pt was transfused and had D&C and myomectomy on 06/22/18. Pt has had bleeding since the procedure requiring several transfusions (should be receiving 8th PRBC this afternoon). Pt developed fever of 101 this morning at 5 am and was found to have RML consolidation on CTAP. Medicine was called to evaluate for PNA. Pt states she has been using her incentive spirometer. She does not feel feverish. She has developed a cough productive of yellow sputum. Denies CP/SOB. Her only complaint at this time is her bleeding and abdominal pain. REVIEW OF SYSTEMS: CONSTITUTIONAL: fever (objective) Absent: , chills, diaphoresis, generalized weakness, malaise, loss of appetite , weight change HEENT: Absent: rhinorrhea, nasal congestion, throat pain, throat swelling, difficulty swallowing, mouth swelling, ear pain, eye pain, visual changes CARDIOVASCULAR: Absent: chest pain, syncope, palpitations, irregular heart rate, lightheadedness , peripheral edema RESPIRATORY: cough with sputum Absent: , shortness of breath, dyspnea with exertion, orthopnea, wheezing, stridor, hemoptysis GASTROINTESTINAL:abdominal pain Absent: , abdominal distension, nausea, vomiting, diarrhea, constipation, melena , hematochezia GENITOURINARY: Absent: dysuria, frequency, urgency, hesitancy, hematuria, flank pain, genital pain MUSCULOSKELETAL: Absent: myalgia, arthralgia, joint swelling, back pain, neck pain SKIN: Absent: rash, itching, pallor HEMATOLOGIC/IMMUNOLOGIC: Absent: easy bleeding, easy bruising, lymphadenopathy, frequent infections ENDOCRINE: Absent: unexplained weight gain, unexplained weight loss, heat intolerance, cold intolerance NEUROLOGIC: Absent: headache, focal weakness or paresthesias, dizziness, unsteady gait, seizure, mental status changes, bladder or bowel incontinence PSYCHIATRIC: Absent: anxiety, depression, suicidal or homicidal ideation, hallucinations. PHYSICAL EXAMINATION Vital Signs - 24 hr 06/23/18 06/23/18 06/23/18 14:00 18:00 22:00 Temperature 98.2 F 99.8 F H 100 F H Pulse Rate 99 H 103 H 108 H Respiratory 20 20 18 Rate Blood Pressure 130/83 117/74 116/56 L 06/24/18 06/24/18 06/24/18 05:16 06:44 08:30 Temperature 101 F H 98.3 F 98.8 F Pulse Rate 105 H 108 H Respiratory 18 20 Rate Blood Pressure 101/57 L 118/57 L GEN: NAD lying in bed HEENT: NCAT, EOMI Cardio: rrr, normal s1s2, 3/6 systolic murmur RUSB, no rubs/gallops Pulm: lugs sound clear b/l. somewhat poor insp effort. Abd: obese, pos bs, soft, mild tenderness suprapubically, no guarding Ext: no edema Laboratory Results - last 24 hr 06/21/18 06/23/18 06/23/18 11:40 17:30 22:00 WBC 10.4 H 10.0 RBC 2.71 L 2.58 L Hgb 8.0 L 7.5 L Hct 22.6 L D 21.3 L MCV 83.3 82.4 MCH 29.4 29.1 MCHC 35.3 35.3 RDW 15.6 15.3 Plt Count 183 179 MPV 6.7 L 6.6 L Absolute Neuts (auto) 8.6 H 8.4 H Neutrophils % 82.1 83.6 H Lymphocytes % 9.2 D 10.4 Monocytes % 8.5 5.6 Eosinophils % 0.1 D 0.2 D Basophils % 0.1 0.2 Nucleated RBC % 0 0 PT with INR INR PTT (Actin FS) Sodium Potassium Chloride Carbon Dioxide Anion Gap BUN Creatinine Creat Clearance w eGFR Random Glucose Calcium Blood Type A POSITIVE Antibody Screen Negative Crossmatch See Detail 06/24/18 06/24/18 06/24/18 06:00 08:30 08:48 WBC 8.9 RBC 2.27 L Hgb 6.4 L* Hct 19.0 L MCV 83.7 MCH 28.2 MCHC 33.7 RDW 15.0 Plt Count 156 MPV 6.7 L Absolute Neuts (auto) 7.2 Neutrophils % 80.1 Lymphocytes % 12.4 Monocytes % 6.6 Eosinophils % 0.6 D Basophils % 0.3 Nucleated RBC % 0 PT with INR 13.90 H INR 1.18 H PTT (Actin FS) 25.2 Sodium 142 Potassium 4.0 Chloride 108 H Carbon Dioxide 27 Anion Gap 8 BUN 11 Creatinine 0.8 Creat Clearance w eGFR > 60 Random Glucose 107 H Calcium 7.3 L Blood Type Antibody Screen Crossmatch 06/24/18 09:58 WBC RBC Hgb Hct MCV MCH MCHC RDW Plt Count MPV Absolute Neuts (auto) Neutrophils % Lymphocytes % Monocytes % Eosinophils % Basophils % Nucleated RBC % PT with INR INR PTT (Actin FS) Sodium Potassium Chloride Carbon Dioxide Anion Gap BUN Creatinine Creat Clearance w eGFR Random Glucose Calcium Blood Type A POSITIVE Antibody Screen Negative Crossmatch See Detail Active Medications Generic Name Dose Route Start Last Admin Trade Name Freq PRN Reason Stop Dose Admin Acetaminophen 650 mg 06/24/18 18:15 Tylenol - PO Q4H PRN FEVER Albuterol Sulfate 2 puff 06/21/18 22:00 06/24/18 10:03 Ventolin Hfa Inhaler - IH 2 puff BID MAURO Administration Albuterol Sulfate 1 amp 06/22/18 16:16 06/22/18 16:10 Ventolin 0.083% Nebulizer Soln - NEB 1 amp Q4H PRN Administration SHORT OF BREATH/WHEEZING Hydromorphone HCl 4 mg 06/24/18 05:53 06/24/18 08:28 Dilaudid - PO 4 mg Q6H PRN Administration PAIN LEVEL 6-10 Hydromorphone HCl 2 mg 06/24/18 05:53 Dilaudid - PO Q6H PRN PAIN LEVEL 4 - 6 Hydromorphone HCl 4 mg 06/24/18 12:15 06/24/18 12:51 Dilaudid Vial - IVPB 4 mg Q6H PRN Administration PAIN LEVEL 7 - 10 Lactated Ringer's 1,000 ml in 1,000 mls @ 125 mls/hr 06/22/18 16:30 06/23/18 18:43 Lactated Ringers Solution IV 125 mls/hr ASDIR MAURO Administration Ibuprofen 600 mg 06/24/18 05:56 Caldolor Injection - IVPB Q6H PRN FEVER Ondansetron HCl 4 mg 06/22/18 20:15 06/23/18 10:27 Zofran Injection IVPUSH 4 mg Q6H PRN Administration NAUSEA Promethazine HCl 12.5 mg 06/22/18 10:56 Phenergan Injection - IVPB Q6H PRN NAUSEA-FOR RESCUE AFTER 15 MIN ASSESSMENT/PLAN: Pt is a 38y/o F with PMH Asthma who came to the hospital for vaginal bleeding following a D&C in May. Pt had D&C on 06/21. She is being evaluated for persistent bleeding. Pt is being evaluated for PNA in setting of new fever and RML consolidation on CT. #PNA -BCx -Sputum Cx -Abx #Uterine bleeding s/p D&C and myomectomy for retained products -management per primary team -considering IR for possible intervention -received 7 PRBCs so far #Asthma -c/w albuterol inhaler -nebs prn Dispo: We will continue to follow the patient. Thank you for this consultative opportunity. Visit type - Emergency Visit Emergency Visit: No - New Patient This patient is new to me today: Yes Date on this admission: 06/25/18 - Critical Care Critical Care patient: No
[2018-06-24 13:45] LABS: BASO % 0.4 % (0-2.0); EOS % 0.7 % (0-4.5); HEMATOCRIT 24.6 % (32.4-45.2); HEMOGLOBIN 8.2 GM/dL (10.7-15.3); LYMPH % 10.7 % (8-40); MCH 28.2 pg (25.7-33.7); MCHC 33.4 g/dl (32.0-36.0); MEAN CELL VOLUME 84.5 fl (80-96); MEAN PLT VOLUME 6.4 fl (7.5-11.1); MONO % 6.3 % (3.8-10.2); NEUT % 81.9 % (42.8-82.8); PLATELET COUNT 170 K/MM3 (134-434); RBC 2.91 M/mm3 (3.60-5.2); RDW 14.8 % (11.6-15.6); WHITE BLOOD COUNT 9.1 K/mm3 (4.0-10.0)
--- NOTE | 2018-06-24 13:47 | CONSULT ---
Consultation: REQUESTING PROVIDER: Dr. Wang CONSULT REQUEST FOR HEMATOLOGY/ONCOLOGY: We have been asked to medically evaluate this patient for Acute blood loss anemia . HISTORY OF PRESENT ILLNESS: Patient is a 38 year old female with a PMHx of asthma who presented to the hospital for Myomectomy and D&C. Patient now s/p Myomectomy and D&C (06/22/18) and has been bleeding since the procedure requiring multiple transfusions. Patient reports she had regular but heavy periods most of her life but in February 2018 patient started experiencing heavy bleeding in between her menses and was scheduled for myomectomy. However, she was found to be and patient had a spontaneous in April. After her , patient had her first D&C May but now w/ retained POC with second D&C done on . After the procedure, patient was found to be anemic, requiring multiple transfusions and we were consulted for further assessment. Patient denies any blood disorders or family history of blood disorders Patient was never diagnosed with any malignancies Patient denies ever having VTE, Strokes, or Pulmonary embolisms or a family history of it Patient denies any control use Of note, patient reports having 4 pregnancies with 1 elective and 3 spontaneous abortions all in the first trimester. Patient is unsure if she's ever been worked up. Otherwise, patient denies any nausea, vomiting, abdominal pain, chest pain, shortness of breath, dysuria, hematuria, melena, hematochezia, hematemesis. PMHx: Asthma PSHx: D&C x2 (05/2018 and 06/2018) Myomectomy (06/2018) Social Hx: Denies alcohol use Denies smoking Denies Drugs Lives with Spouse Family Hx: Grandmother- Breast Cancer Allergies: NKDA REVIEW OF SYSTEMS: CONSTITUTIONAL: fever, chills Absent: diaphoresis, generalized weakness, malaise, loss of appetite, weight change HEENT: Absent: rhinorrhea, nasal congestion, throat pain, throat swelling, difficulty swallowing, mouth swelling, ear pain, eye pain, visual changes CARDIOVASCULAR: Absent: chest pain, syncope, palpitations, irregular heart rate, lightheadedness , peripheral edema RESPIRATORY: cough Absent: shortness of breath, dyspnea with exertion, orthopnea, wheezing, stridor , hemoptysis GASTROINTESTINAL: Absent: abdominal pain, abdominal distension, nausea, vomiting, diarrhea, constipation, melena, hematochezia GENITOURINARY: Vaginal bleeding Absent: dysuria, frequency, urgency, hesitancy, hematuria, flank pain, genital pain MUSCULOSKELETAL: Absent: myalgia, arthralgia, joint swelling, back pain, neck pain SKIN: Absent: rash, itching, pallor HEMATOLOGIC/IMMUNOLOGIC: Absent: easy bleeding, easy bruising, lymphadenopathy, frequent infections ENDOCRINE: Absent: unexplained weight gain, unexplained weight loss, heat intolerance, cold intolerance NEUROLOGIC: dizziness Absent: headache, focal weakness or paresthesias, unsteady gait, seizure, mental status changes, bladder or bowel incontinence PSYCHIATRIC: Absent: anxiety, depression, suicidal or homicidal ideation, hallucinations. PHYSICAL EXAMINATION Vital Signs 06/24/18 06/24/18 06/24/18 05:16 06:44 08:30 Temperature 101 F H 98.3 F 98.8 F Pulse Rate 105 H 108 H Respiratory 18 20 Rate Blood Pressure 101/57 L 118/57 L GENERAL: Awake, alert, and fully oriented, in no acute distress. HEAD: Normal with no signs of trauma. EYES: Pupils equal, round and reactive to light, extraocular movements intact, sclera anicteric, conjunctiva clear. ENT: Oropharynx clear without exudates. Moist mucous membranes. NECK: Normal range of motion, supple without lymphadenopathy, JVD, or masses. LUNGS: Breath sounds equal, clear to auscultation bilaterally. No wheezes, and no crackles. No accessory muscle use. HEART: Regular rate and rhythm, normal S1 and S2 BREAST: No discoloration, retraction, masses or nipple discharge ABDOMEN: Soft, obese, suprapubic tenderness, not distended, normoactive bowel sounds. No hepatomegaly or splenomegaly. MUSCULOSKELETAL: No CVA tenderness. EXTREMITIES: 2+ pulses, warm, well-perfused. No calf tenderness. No peripheral edema. NEUROLOGICAL: Cranial nerves II-XII intact. Normal speech. PSYCHIATRIC: Cooperative. Good eye contact. Appropriate mood and affect. SKIN: Warm, dry, normal turgor, no rashes or lesions noted. Laboratory Results - last 24 hr 06/21/18 06/23/18 06/23/18 11:40 17:30 22:00 WBC 10.4 H 10.0 RBC 2.71 L 2.58 L Hgb 8.0 L 7.5 L Hct 22.6 L D 21.3 L MCV 83.3 82.4 MCH 29.4 29.1 MCHC 35.3 35.3 RDW 15.6 15.3 Plt Count 183 179 MPV 6.7 L 6.6 L Absolute Neuts (auto) 8.6 H 8.4 H Neutrophils % 82.1 83.6 H Lymphocytes % 9.2 D 10.4 Monocytes % 8.5 5.6 Eosinophils % 0.1 D 0.2 D Basophils % 0.1 0.2 Nucleated RBC % 0 0 PT with INR INR PTT (Actin FS) Sodium Potassium Chloride Carbon Dioxide Anion Gap BUN Creatinine Creat Clearance w eGFR Random Glucose Calcium Blood Type A POSITIVE Antibody Screen Negative Crossmatch See Detail 06/24/18 06/24/18 06/24/18 06:00 08:30 08:48 WBC 8.9 RBC 2.27 L Hgb 6.4 L* Hct 19.0 L MCV 83.7 MCH 28.2 MCHC 33.7 RDW 15.0 Plt Count 156 MPV 6.7 L Absolute Neuts (auto) 7.2 Neutrophils % 80.1 Lymphocytes % 12.4 Monocytes % 6.6 Eosinophils % 0.6 D Basophils % 0.3 Nucleated RBC % 0 PT with INR 13.90 H INR 1.18 H PTT (Actin FS) 25.2 Sodium 142 Potassium 4.0 Chloride 108 H Carbon Dioxide 27 Anion Gap 8 BUN 11 Creatinine 0.8 Creat Clearance w eGFR > 60 Random Glucose 107 H Calcium 7.3 L Blood Type Antibody Screen Crossmatch Active Medications Generic Name Dose Route Start Last Admin Trade Name Freq PRN Reason Stop Dose Admin Acetaminophen 650 mg 06/24/18 18:15 Tylenol - PO Q4H PRN FEVER Albuterol Sulfate 2 puff 06/21/18 22:00 06/24/18 10:03 Ventolin Hfa Inhaler - IH 2 puff BID MAURO Administration Albuterol Sulfate 1 amp 06/22/18 16:16 06/22/18 16:10 Ventolin 0.083% Nebulizer Soln - NEB 1 amp Q4H PRN Administration SHORT OF BREATH/WHEEZING Docusate Sodium 100 mg 06/24/18 22:00 Colace - PO BID MAURO Hydromorphone HCl 4 mg 06/24/18 05:53 06/24/18 08:28 Dilaudid - PO 4 mg Q6H PRN Administration PAIN LEVEL 6-10 Hydromorphone HCl 2 mg 06/24/18 05:53 Dilaudid - PO Q6H PRN PAIN LEVEL 4 - 6 Hydromorphone HCl 4 mg 06/24/18 12:15 06/24/18 12:51 Dilaudid Vial - IVPB 4 mg Q6H PRN Administration PAIN LEVEL 7 - 10 Lactated Ringer's 1,000 ml in 1,000 mls @ 125 mls/hr 06/22/18 16:30 06/23/18 18:43 Lactated Ringers Solution IV 125 mls/hr ASDIR MAURO Administration Ibuprofen 600 mg 06/24/18 05:56 Caldolor Injection - IVPB Q6H PRN FEVER Ondansetron HCl 4 mg 06/22/18 20:15 06/23/18 10:27 Zofran Injection IVPUSH 4 mg Q6H PRN Administration NAUSEA Promethazine HCl 12.5 mg 06/22/18 10:56 Phenergan Injection - IVPB Q6H PRN NAUSEA-FOR RESCUE AFTER 15 MIN Senna 1 tab 06/24/18 22:00 Senna - PO HS MAURO ASSESSMENT/PLAN: Patient is a 38 year old female who presented for Myomectomy and suction D&C. Patient experienced post op complications bleeding and found to have Acute blood loss anemia. We were consulted for further monitoring and management. Problem List: Acute blood loss anemia Uterine bleeding S/P myomectomy and D&C for retained products Spontaneous Abortions x3 Pneumonia Asthma Plan: -Patients bleeding source likely from uterine etiology and will need to be evaluated by IR for embolization. If patient is unable to have embolization done here, she will need to be transferred -Anemia might also be a dilutional component as patient was given IV fluids. -Patient also reports three spontaneous miscarriages in the first trimester, which warrants further investigation for hypercoaguability, Lupus/SLE, and vasculitis workup. -Continue to monitor CBC/Coags and transfuse as needed Dispo: We will continue to follow the patient. Thank you for this consultative opportunity. Visit type - Emergency Visit Emergency Visit: Yes ED Registration Date: 06/21/18 Care time: The patient presented to the Emergency Department on the above date and was hospitalized for further evaluation of their emergent condition. - New Patient This patient is new to me today: Yes Date on this admission: 06/24/18 - Critical Care Critical Care patient: No
[2018-06-24 14:08] LABS: INR 1.13 (0.83-1.09); PROTHROMBIN TIME (PATIENT) 13.4 SEC (9.7-13.0)
[2018-06-24 14:10] LABS: ACTIVATED PTT 26.1 SECONDS (25.2-36.5)
--- NOTE | 2018-06-24 14:21 | PN ---
Progress Note, Physician Chief Complaint: Pt c/o some abdominal pain. No n/v. Belching. Tolerating clears. Thirsty. - Current Medication List Current Medications: Active Medications Acetaminophen (Tylenol -) 650 mg PO Q4H PRN PRN Reason: FEVER Albuterol Sulfate (Ventolin Hfa Inhaler -) 2 puff IH BID MAURO Last Admin: 06/24/18 10:03 Dose: 2 puff Albuterol Sulfate (Ventolin 0.083% Nebulizer Soln -) 1 amp NEB Q4H PRN PRN Reason: SHORT OF BREATH/WHEEZING Last Admin: 06/22/18 16:10 Dose: 1 amp Docusate Sodium (Colace -) 100 mg PO BID MAURO Hydromorphone HCl (Dilaudid -) 4 mg PO Q6H PRN PRN Reason: PAIN LEVEL 6-10 Last Admin: 06/24/18 08:28 Dose: 4 mg Hydromorphone HCl (Dilaudid -) 2 mg PO Q6H PRN PRN Reason: PAIN LEVEL 4 - 6 Hydromorphone HCl (Dilaudid Vial -) 4 mg IVPB Q6H PRN PRN Reason: PAIN LEVEL 7 - 10 Last Admin: 06/24/18 12:51 Dose: 4 mg Lactated Ringer's (Lactated Ringers Solution) 1,000 ml in 1,000 mls @ 125 mls/ hr IV ASDIR MAURO Last Admin: 06/23/18 18:43 Dose: 125 mls/hr Ibuprofen (Caldolor Injection -) 600 mg IVPB Q6H PRN PRN Reason: FEVER Ondansetron HCl (Zofran Injection) 4 mg IVPUSH Q6H PRN PRN Reason: NAUSEA Last Admin: 06/23/18 10:27 Dose: 4 mg Promethazine HCl (Phenergan Injection -) 12.5 mg IVPB Q6H PRN PRN Reason: NAUSEA-FOR RESCUE AFTER 15 MIN Senna (Senna -) 1 tab PO HS [facility] - Objective Vital Signs: Vital Signs Temperature 98.8 F 06/24/18 08:30 Pulse Rate 108 H 06/24/18 08:30 Respiratory Rate 20 06/24/18 08:30 Blood Pressure 118/57 L 06/24/18 08:30 O2 Sat by Pulse Oximetry (%) 100 06/22/18 21:00 Constitutional: Yes: Well Nourished, No Distress, Calm Eyes: Yes: Conjunctiva Clear, EOM Intact HENT: Yes: Atraumatic, Normocephalic Neck: Yes: Supple Cardiovascular: Yes: Regular Rate and Rhythm Respiratory: Yes: Regular, CTA Bilaterally Gastrointestinal: Yes: Soft, Tenderness (normal post surgical tenderness) Wound/Incision: Yes: Clean/Dry, Well Approximated Psychiatric: Yes: Alert, Oriented Labs: CBC, BMP 06/24/18 13:30 06/24/18 08:30 INR, PTT INR 1.13 (0.83-1.09) H 06/24/18 13:30 Fibrinogen 453.0 mg/dL (238-498) 06/22/18 07:00 Problem List - Problems (1) Vaginal bleeding Code(s): N93.9 - ABNORMAL UTERINE AND VAGINAL BLEEDING, UNSPECIFIED (2) Retained products of conception Code(s): XNB6089 - (3) Leiomyoma Code(s): D21.9 - BENIGN NEOPLASM OF CONNECTIVE AND OTHER SOFT TISSUE, UNSP (4) Anemia Code(s): D64.9 - ANEMIA, UNSPECIFIED Qualifiers: Other causes of anemia: acute posthemorrhagic Assessment/Plan Lengthy discussion with pt re: plan of care On unit 8 of PRBC - hematology following Discussed case with interventional radiology regarding possible uterine artery embolization if bleeding continues - no extravasation of blood into abdomen, would likely not benefit from laparotomy as no hemoperitoneum/pelvic hematoma, all confined to uterus - should tamponade - pt aware. If does need UAE pt aware may impact fertility - she is ok as long as "problem gets fixed" Medicine discussed with pt CT scan - will treat for possible pneumonia hold lovenox for now OOB to chair continue current care
[2018-06-24] MEDS ORDERED: CEFTRIAXONE 1 GM in DEXTROSE 5%-WATER - 100 ML IVPB SCH (14:45)
[2018-06-24 14:56] LABS: MAGNESIUM 2.1 mg/dL (1.8-2.4); PHOSPHOROUS 2.5 mg/dL (2.5-4.9)
[2018-06-24] MEDS ORDERED: CEFTRIAXONE 1 GM in DEXTROSE 5%-WATER 100 ML IVPB SCH (14:56)
--- NOTE | 2018-06-24 14:56 | PN ---
Teaching Attending Note Name of Resident: Jomar Barraza ATTENDING PHYSICIAN STATEMENT I saw and evaluated the patient. I reviewed the resident's note and discussed the case with the resident. I agree with the resident's findings and plan as documented. SUBJECTIVE: This is a 38 year old woman with a history of asthma, fibroid uterus , recent incomplete with retained products of conception who underwent suction D&C and open abdominal myomectomy on 06/22. She had been transfused 2 units PRBCs prior to the surgery because of hemoglobin 7.0. Post-op she has required multiple transfusions and hematology has been consulted. This morning she had temp 101. CT abd/pelvis was done showing RML consolidation, bibasilar atelectasis, air and fluid within pelvis, myomatous uterus. Medicine consultation was requested for possible pneumonia. The patient reports feeling SOB which she says feels like her asthma. She has a cough with yellow sputum. OBJECTIVE: Vital Signs Period Temp Pulse Resp BP Sys/[place] Pulse Ox Last 24 Hr 98.3 F-101 F 103-108 18-20 101-118/56-74 HEART: S1S2, tachycardic LUNGS: Clear ABDOMEN: Obese, soft, non-distended, normal BS EXTREMITIES: No edema Laboratory Results - last 24 hr 06/21/18 06/23/18 06/23/18 11:40 17:30 22:00 WBC 10.4 H 10.0 RBC 2.71 L 2.58 L Hgb 8.0 L 7.5 L Hct 22.6 L D 21.3 L MCV 83.3 82.4 MCH 29.4 29.1 MCHC 35.3 35.3 RDW 15.6 15.3 Plt Count 183 179 MPV 6.7 L 6.6 L Absolute Neuts (auto) 8.6 H 8.4 H Neutrophils % 82.1 83.6 H Lymphocytes % 9.2 D 10.4 Monocytes % 8.5 5.6 Eosinophils % 0.1 D 0.2 D Basophils % 0.1 0.2 Nucleated RBC % 0 0 PT with INR INR PTT (Actin FS) Sodium Potassium Chloride Carbon Dioxide Anion Gap BUN Creatinine Creat Clearance w eGFR Random Glucose Calcium Blood Type A POSITIVE Antibody Screen Negative Crossmatch See Detail 06/24/18 06/24/18 06/24/18 06:00 08:30 08:48 WBC 8.9 RBC 2.27 L Hgb 6.4 L* Hct 19.0 L MCV 83.7 MCH 28.2 MCHC 33.7 RDW 15.0 Plt Count 156 MPV 6.7 L Absolute Neuts (auto) 7.2 Neutrophils % 80.1 Lymphocytes % 12.4 Monocytes % 6.6 Eosinophils % 0.6 D Basophils % 0.3 Nucleated RBC % 0 PT with INR 13.90 H INR 1.18 H PTT (Actin FS) 25.2 Sodium 142 Potassium 4.0 Chloride 108 H Carbon Dioxide 27 Anion Gap 8 BUN 11 Creatinine 0.8 Creat Clearance w eGFR > 60 Random Glucose 107 H Calcium 7.3 L Blood Type Antibody Screen Crossmatch 06/24/18 06/24/18 06/24/18 09:58 13:30 13:30 WBC 9.1 RBC 2.91 L Hgb 8.2 L Hct 24.6 L D MCV 84.5 MCH 28.2 MCHC 33.4 RDW 14.8 Plt Count 170 MPV 6.4 L Absolute Neuts (auto) 7.4 Neutrophils % 81.9 Lymphocytes % 10.7 Monocytes % 6.3 Eosinophils % 0.7 Basophils % 0.4 Nucleated RBC % 0 PT with INR 13.40 H INR 1.13 H PTT (Actin FS) 26.1 Sodium Potassium Chloride Carbon Dioxide Anion Gap BUN Creatinine Creat Clearance w eGFR Random Glucose Calcium Blood Type A POSITIVE Antibody Screen Negative Crossmatch See Detail Current Medications Generic Name Dose Route Start Last Admin Trade Name Freq PRN Reason Stop Dose Admin Acetaminophen 650 mg 06/24/18 18:15 Tylenol - PO Q4H PRN FEVER Albuterol Sulfate 2 puff 06/21/18 22:00 06/24/18 10:03 Ventolin Hfa Inhaler - IH 2 puff BID MAURO Administration Albuterol Sulfate 1 amp 06/22/18 16:16 06/22/18 16:10 Ventolin 0.083% Nebulizer Soln - NEB 1 amp Q4H PRN Administration SHORT OF BREATH/WHEEZING Docusate Sodium 100 mg 06/24/18 22:00 Colace - PO BID MAURO Hydromorphone HCl 4 mg 06/24/18 05:53 06/24/18 08:28 Dilaudid - PO 4 mg Q6H PRN Administration PAIN LEVEL 6-10 Hydromorphone HCl 2 mg 06/24/18 05:53 Dilaudid - PO Q6H PRN PAIN LEVEL 4 - 6 Hydromorphone HCl 4 mg 06/24/18 12:15 06/24/18 12:51 Dilaudid Vial - IVPB 4 mg Q6H PRN Administration PAIN LEVEL 7 - 10 Lactated Ringer's 1,000 ml in 1,000 mls @ 125 mls/hr 06/22/18 16:30 06/23/18 18:43 Lactated Ringers Solution IV 125 mls/hr ASDIR MAURO Administration Ibuprofen 600 mg 06/24/18 05:56 Caldolor Injection - IVPB Q6H PRN FEVER Ondansetron HCl 4 mg 06/22/18 20:15 06/23/18 10:27 Zofran Injection IVPUSH 4 mg Q6H PRN Administration NAUSEA Promethazine HCl 12.5 mg 06/22/18 10:56 Phenergan Injection - IVPB Q6H PRN NAUSEA-FOR RESCUE AFTER 15 MIN Senna 1 tab 06/24/18 22:00 Senna - PO HS [facility] ASSESSMENT AND PLAN: This is a 38 year old woman with a history of asthma, fibroid uterus, recent incomplete with retained products of conception who underwent suction D &C and open abdominal myomectomy on 06/22. 1. Pneumonia - Check sputum culture, blood cultures, urine pneumonia Ag - Start ceftriaxone, azithromycin - Monitor WBC, temp - Continue incentive spirometer, albuterol inhaler, albuterol nebs as needed - Ambulation 2. Asthma - Stable - Continue albuterol inhaler and nebs as needed 3. Acute blood loss anemia - Continue to transfuse as needed - Hematology consult appreciated 4. s/p suction D&C for retained products of conception, open abdominal myomectomy for uterine fibroids 5. Obesity with BMI 39.0
[2018-06-24] MEDS: AZITHROMYCIN IVPB 500 MG in DEXTROSE 5%-WATER - 250 ML IVPB SCH (15:47)
--- NOTE | 2018-06-24 15:52 | EKG ---
Test Reason : Blood Pressure : / mmHG Vent. Rate : 093 BPM Atrial Rate : 093 BPM P-R Int : 130 ms QRS Dur : 082 ms QT Int : 338 ms P-R-T Axes : 031 027 -04 degrees QTc Int : 420 ms NORMAL SINUS RHYTHM NORMAL ECG NO PREVIOUS ECGS AVAILABLE Confirmed by JULIENNE KILPATRICK MD ([id number]) on 06/24/2018 3:51:49 PM Referred By: Reema Wang Confirmed By:JULIENNE IKLPATRICK MD
[2018-06-24] MEDS: CEFTRIAXONE 1 GM in DEXTROSE 5%-WATER - 50 ML IVPB SCH (17:40)
--- NOTE | 2018-06-24 19:51 | PN ---
Teaching Attending Note Name of Resident: Beth Green ATTENDING PHYSICIAN STATEMENT I saw and evaluated the patient. I reviewed the resident's note and discussed the case with the resident. I agree with the resident's findings and plan as documented. ASSESSMENT AND PLAN: Patient is a 38 year old female who presented for Myomectomy and suction D&C. Patient experienced post op complications bleeding and found to have Acute blood loss anemia. We were consulted for further monitoring and management. Problem List: Acute blood loss anemia Uterine bleeding S/P myomectomy and D&C for retained products Spontaneous Abortions x3 Pneumonia Asthma Plan: -Patients bleeding source from uterine etiology -Anemia might also be a dilutional component as patient was given IV fluids. -PT/PTT/Fibrinogen --nl. No family/personal hoistory of bleeding diathesis will follow clinical course
[2018-06-24] MEDS: DOCUSATE SODIUM 100 MG CAPSULE (FP) PO SCH (21:31)
[2018-06-24] MEDS: SENNOSIDES 8.6MG TABLET (FP) PO SCH (21:31)
[2018-06-25] MEDS: HYDROmorphone HCl 2 MG/ML VIAL IVPB PRN (00:41)
[2018-06-25 07:26] LABS: BASO % 0.3 % (0-2.0); EOS % 3.1 % (0-4.5); HEMATOCRIT 24.8 % (32.4-45.2); HEMOGLOBIN 8.4 GM/dL (10.7-15.3); LYMPH % 14.5 % (8-40); MCH 28.8 pg (25.7-33.7); MCHC 33.8 g/dl (32.0-36.0); MEAN PLT VOLUME 6.6 fl (7.5-11.1); MONO % 6.7 % (3.8-10.2); NEUT % 75.4 % (42.8-82.8); PLATELET COUNT 165 K/MM3 (134-434); RBC 2.92 M/mm3 (3.60-5.2); RDW 15.2 % (11.6-15.6); WHITE BLOOD COUNT 8.7 K/mm3 (4.0-10.0)
[2018-06-25 07:46] LABS: ALBUMIN 2.3 g/dl (3.4-5.0); ALK PHOS 51 U/L (45-117); ANION GAP 6 MMOL/L (8-16); BILIRUBIN,TOTAL 0.4 mg/dL (0.2-1); BLOOD UREA NITROGEN 9 mg/dL (7-18); CALCIUM 7.8 mg/dL (8.5-10.1); CHLORIDE 104 mmol/L (98-107); CO2 29 mmol/L (21-32); CREATININE 0.7 mg/dL (0.55-1.3); GLUCOSE,RANDOM 93 mg/dL (74-106); POTASSIUM 3.9 mmol/L (3.5-5.1); SGOT/AST 43 U/L (15-37); SGPT/ALT 15 U/L (13-61); SODIUM 139 mmol/L (136-145); TOT PROT 5.2 g/dl (6.4-8.2)
[2018-06-25] MEDS: HYDROmorphone HCL 2 MG TABLET PO PRN ×3 (08:11→20:04)
--- NOTE | 2018-06-25 08:56 | PN ---
Progress Note (short form) - Note Progress Note: POD# Pt oob to chair yesterday and using incentive spirometer. Scant vaginal bleeding noted. No nausea or emesis. Vital Signs Period Temp Pulse Resp BP Sys/Dumont Pulse Ox Last 24 Hr 97.8 F-98.9 F 91-101 20-20 116-126/64-72 UOP: 1000ml clear urine GEN: A&0x3, NAD CV: RR, mild tachycardia Lungs: CTA b/l anteriorly ABD: Soft, non-distended, inc tenderness with some LLQ tenderness. Inc c/d/i LE: no calf tenderness or swelling noted b/l CBC, BMP 06/25/18 06:00 06/25/18 06:00 Laboratory Tests 06/21/18 06/22/18 06/22/18 11:40 07:00 18:45 WBC Hgb 7.0 L 8.1 L 8.5 L Hct 21.2 L D 24.0 L 24.2 L 06/24/18 13:30 WBC 9.1 Hgb 8.2 L Hct 24.6 L D Laboratory Tests 06/24/18 06/24/18 13:30 13:30 PT with INR 13.40 H INR 1.13 H PTT (Actin FS) 26.1 Fibrinogen 420.0 Microbiology blood cultures, urine and sputum cultures pending CT scan: bibasilar atelectesis with RML infiltrate A/P: 38 yo female s/p suction D&C. Abdominal myomectomy, POD#3 s/p 8 units PRBC, now with stable HCT overnight, seen by hematology. D/w Dr. Wang and will resume her oral diet Plan for OOB and removal of corrales catheter IV abx as per the medical team for RML infiltrate, continue Incentive spirometer and mobilize pt with oob to chair and ambulate
[2018-06-25] MEDS: ALBUTEROL SO4 8 GM HFA INHALER IH SCH ×2 (10:00→21:57)
[2018-06-25] MEDS: DOCUSATE SODIUM 100 MG CAPSULE (FP) PO SCH ×2 (10:00→21:57)
[2018-06-25] MEDS: CEFTRIAXONE 1 GM in DEXTROSE 5%-WATER - 50 ML IVPB SCH (10:00)
[2018-06-25] MEDS: AZITHROMYCIN IVPB 500 MG in DEXTROSE 5%-WATER - 250 ML IVPB SCH (10:00)
[2018-06-25 12:59] LABS: BASO % 0.3 % (0-2.0); EOS % 3.1 % (0-4.5); HEMATOCRIT 27.1 % (32.4-45.2); LYMPH % 13.9 % (8-40); MCH 28.5 pg (25.7-33.7); MCHC 33.2 g/dl (32.0-36.0); MEAN CELL VOLUME 85.8 fl (80-96); MEAN PLT VOLUME 6.5 fl (7.5-11.1); MONO % 5.4 % (3.8-10.2); NEUT % 77.3 % (42.8-82.8); PLATELET COUNT 183 K/MM3 (134-434); RBC 3.16 M/mm3 (3.60-5.2); WHITE BLOOD COUNT 9.3 K/mm3 (4.0-10.0)
--- NOTE | 2018-06-25 13:27 | CONSULT ---
Consultation: REQUESTING PROVIDER: Dr. Wang CONSULT REQUEST: We have been asked to medically evaluate this patient for ( specify). HISTORY OF PRESENT ILLNESS: 38 year old female with a PMH significant for asthma, fibroid uterus, recent incomplete with retained products of conception who underwent suction D &C and open abdominal myomectomy on 06/22. She had been transfused 2 units PRBCs prior to the surgery because of hemoglobin 7.0. Post-op she has required multiple transfusions and hematology has been consulted. Started on abx yesterday for RML consolidation, bibasilar atelectasis. Patient reports she is feeling better today, pain is well-controlled. No SOB, chest pain, n/v/d. REVIEW OF SYSTEMS: CONSTITUTIONAL: Absent: fever, chills, diaphoresis, generalized weakness, malaise, loss of appetite, weight change HEENT: Absent: rhinorrhea, nasal congestion, throat pain, throat swelling, difficulty swallowing, mouth swelling, ear pain, eye pain, visual changes CARDIOVASCULAR: Absent: chest pain, syncope, palpitations, irregular heart rate, lightheadedness , peripheral edema RESPIRATORY: Absent: cough, shortness of breath, dyspnea with exertion, orthopnea, wheezing, stridor, hemoptysis GASTROINTESTINAL: (+) some abdominal pain Absent: abdominal distension, nausea, vomiting, diarrhea, constipation, melena, hematochezia GENITOURINARY: Absent: dysuria, frequency, urgency, hesitancy, hematuria, flank pain, genital pain MUSCULOSKELETAL: Absent: myalgia, arthralgia, joint swelling, back pain, neck pain SKIN: Absent: rash, itching, pallor HEMATOLOGIC/IMMUNOLOGIC: Absent: easy bleeding, easy bruising, lymphadenopathy, frequent infections ENDOCRINE: Absent: unexplained weight gain, unexplained weight loss, heat intolerance, cold intolerance NEUROLOGIC: Absent: headache, focal weakness or paresthesias, dizziness, unsteady gait, seizure, mental status changes, bladder or bowel incontinence PSYCHIATRIC: Absent: anxiety, depression, suicidal or homicidal ideation, hallucinations. PHYSICAL EXAMINATION Vital Signs - 24 hr 06/24/18 06/24/18 06/25/18 16:00 21:00 02:00 Temperature 98.6 F 98.0 F 97.8 F Pulse Rate 100 H 91 H 95 H Respiratory 20 20 20 Rate Blood Pressure 116/68 123/72 126/64 06/25/18 06:00 Temperature 98.9 F Pulse Rate 98 H Respiratory 20 Rate Blood Pressure 119/65 GENERAL: Awake, alert, and fully oriented, in no acute distress. HEAD: Normal with no signs of trauma. EYES: Pupils equal, round and reactive to light, extraocular movements intact, sclera anicteric, conjunctiva clear. No lid lag. EARS, NOSE, THROAT: Ears normal, nares patent, oropharynx clear without exudates. Moist mucous membranes. NECK: Normal range of motion, supple without lymphadenopathy, JVD, or masses. LUNGS: Breath sounds equal, clear to auscultation bilaterally. No wheezes, and no crackles. No accessory muscle use. HEART: rapid rate and regular rhythm, normal S1 and S2 without murmur, rub or gallop. ABDOMEN: Obese, soft, nontender, not distended, normoactive bowel sounds, no guarding, no rebound, no masses. No hepatomegaly or splenomegaly. MUSCULOSKELETAL: Normal range of motion at all joints. No bony deformities or tenderness. No CVA tenderness. UPPER EXTREMITIES: 2+ pulses, warm, well-perfused. No cyanosis. No clubbing. Cap refill <2 seconds. No peripheral edema. LOWER EXTREMITIES: 2+ pulses, warm, well-perfused. No calf tenderness. No peripheral edema. NEUROLOGICAL: No facial droop, tongue midline, normal speech. Normal gait. PSYCHIATRIC: Cooperative. Good eye contact. Appropriate mood and affect. SKIN: Warm, dry, normal turgor, no rashes or lesions noted. Laboratory Results - last 24 hr 06/21/18 06/24/18 06/24/18 11:40 08:30 09:58 WBC RBC Hgb Hct MCV MCH MCHC RDW Plt Count MPV Absolute Neuts (auto) Neutrophils % Lymphocytes % Monocytes % Eosinophils % Basophils % Nucleated RBC % PT with INR INR PTT (Actin FS) Fibrinogen Sodium 142 Potassium 4.0 Chloride 108 H Carbon Dioxide 27 Anion Gap 8 BUN 11 Creatinine 0.8 Creat Clearance w eGFR > 60 Random Glucose 107 H Calcium 7.3 L Phosphorus 2.5 Magnesium 2.1 Total Bilirubin AST ALT Alkaline Phosphatase Total Protein Albumin Blood Type A POSITIVE A POSITIVE Antibody Screen Negative Negative Crossmatch See Detail See Detail 06/24/18 06/24/18 06/24/18 13:30 13:30 13:30 WBC 9.1 RBC 2.91 L Hgb 8.2 L Hct 24.6 L D MCV 84.5 MCH 28.2 MCHC 33.4 RDW 14.8 Plt Count 170 MPV 6.4 L Absolute Neuts (auto) 7.4 Neutrophils % 81.9 Lymphocytes % 10.7 Monocytes % 6.3 Eosinophils % 0.7 Basophils % 0.4 Nucleated RBC % 0 PT with INR 13.40 H INR 1.13 H PTT (Actin FS) 26.1 Fibrinogen 420.0 Sodium Potassium Chloride Carbon Dioxide Anion Gap BUN Creatinine Creat Clearance w eGFR Random Glucose Calcium Phosphorus Magnesium Total Bilirubin AST ALT Alkaline Phosphatase Total Protein Albumin Blood Type Antibody Screen Crossmatch 06/25/18 06/25/18 06/25/18 06:00 06:00 12:25 WBC 8.7 9.3 RBC 2.92 L 3.16 L Hgb 8.4 L 9.0 L Hct 24.8 L 27.1 L MCV 85.0 85.8 MCH 28.8 28.5 MCHC 33.8 33.2 RDW 15.2 15.0 Plt Count 165 183 MPV 6.6 L 6.5 L Absolute Neuts (auto) 6.6 7.2 Neutrophils % 75.4 77.3 Lymphocytes % 14.5 D 13.9 Monocytes % 6.7 5.4 Eosinophils % 3.1 D 3.1 Basophils % 0.3 0.3 Nucleated RBC % 0 0 PT with INR INR PTT (Actin FS) Fibrinogen Sodium 139 Potassium 3.9 Chloride 104 Carbon Dioxide 29 Anion Gap 6 L BUN 9 Creatinine 0.7 Creat Clearance w eGFR > 60 Random Glucose 93 Calcium 7.8 L Phosphorus Magnesium Total Bilirubin 0.4 AST 43 H ALT 15 Alkaline Phosphatase 51 Total Protein 5.2 L Albumin 2.3 L Blood Type Antibody Screen Crossmatch Active Medications Generic Name Dose Route Start Last Admin Trade Name Freq PRN Reason Stop Dose Admin Acetaminophen 650 mg 06/24/18 18:15 Tylenol - PO Q4H PRN FEVER Albuterol Sulfate 2 puff 06/21/18 22:00 06/25/18 10:00 Ventolin Hfa Inhaler - IH 2 puff BID MAURO Administration Albuterol Sulfate 1 amp 06/22/18 16:16 06/22/18 16:10 Ventolin 0.083% Nebulizer Soln - NEB 1 amp Q4H PRN Administration SHORT OF BREATH/WHEEZING Docusate Sodium 100 mg 06/24/18 22:00 06/25/18 10:00 Colace - PO 100 mg BID MAURO Administration Hydromorphone HCl 4 mg 06/24/18 05:53 06/25/18 08:11 Dilaudid - PO 4 mg Q6H PRN Administration PAIN LEVEL 6-10 Hydromorphone HCl 2 mg 06/24/18 05:53 Dilaudid - PO Q6H PRN PAIN LEVEL 4 - 6 Hydromorphone HCl 4 mg 06/24/18 12:15 06/25/18 00:41 Dilaudid Vial - IVPB 4 mg Q6H PRN Administration PAIN LEVEL 7 - 10 Lactated Ringer's 1,000 ml in 1,000 mls @ 125 mls/hr 06/22/18 16:30 06/23/18 18:43 Lactated Ringers Solution IV 125 mls/hr ASDIR MAURO Administration Azithromycin 500 mg/ Dextrose 250 mls @ 250 mls/hr 06/24/18 14:45 06/25/18 10 :00 IVPB 250 mls/hr DAILY MAURO Administration Ceftriaxone Sodium 1 gm/ 50 mls @ 100 mls/hr 06/24/18 17:45 06/25/18 10:00 Dextrose IVPB 100 mls/hr DAILY MAURO Administration Protocol Ibuprofen 600 mg 06/24/18 05:56 Caldolor Injection - IVPB Q6H PRN FEVER Ondansetron HCl 4 mg 06/22/18 20:15 06/23/18 10:27 Zofran Injection IVPUSH 4 mg Q6H PRN Administration NAUSEA Promethazine HCl 12.5 mg 06/22/18 10:56 Phenergan Injection - IVPB Q6H PRN NAUSEA-FOR RESCUE AFTER 15 MIN Senna 1 tab 06/24/18 22:00 06/24/18 21:31 Senna - PO 1 tab HS MAURO Administration ASSESSMENT/PLAN: 38 year old female with a PMH significant for asthma, fibroid uterus, recent incomplete with retained products of conception who underwent suction D &C and open abdominal myomectomy on 06/22. Pneumonia - CT showed RML consolidation, bibasilar atelectasis - Continue ceftriaxone, azithromycin - Sputum and blood cultures pending, urine pneumonia Ag - Start - Monitor WBC, temp - Continue incentive spirometer, albuterol inhaler, albuterol nebs as needed - Ambulation Asthma - Stable - Continue albuterol inhaler and nebs as needed S/p suction D&C for retained products of conception, open abdominal myomectomy for uterine fibroids - Acute blood loss anemia - Improving - H/H 9.0/27.1 - PT/PTT/Fibrinogen WNL - Continue to transfuse as needed - Hematology following - May be dilutional from IV fluids - Pain management - Dilauded PRN Obesity with BMI 39.0 - Dietary consult ordered Prophylaxis - DVT: d/ligia lovenox d/t bleed, OOB FEN - LR @125 cc/hr - Replete as needed - Regular diet Dispo: We will continue to follow the patient. Thank you for this consultative opportunity. FULL CODE Visit type - Emergency Visit Emergency Visit: No - New Patient This patient is new to me today: Yes Date on this admission: 06/25/18 - Critical Care Critical Care patient: No
--- NOTE | 2018-06-25 16:25 | PATH ---
Surgical Pathology Report Patient Name: JACI LIN Med. Rec. #: [id number] /Age/Gender: 1980 (Age: 38) / F Account: [id number] Location: [facility] OBS/CORPORATE SAFETY DIRECTOR Taken: 06/22/2018 Received: 06/23/2018 Reported: 06/25/2018 Physicians: Reema Wang M.D. Specimen(s) Received A: PRODUCTS OF CONCEPTION B: FIBROID Clinical History Vaginal bleeding, fibroids Final Diagnosis A. PRODUCTS OF CONCEPTION, SUCTION DILATION AND CURETTAGE: NECROTIC/DEGENERATED CHORIONIC VILLI AND DECIDUA IN A BACKGROUND OF BLOOD AND BENIGN CERVICAL TISSUE. B. FIBROIDS, MYOMECTOMY: LEIOMYOMA(TA) WITH FOCAL DEGENERATIVE CHANGES. Comment: Immunohistochemical stain performed at [place], [place] ([id number]) and interpreted at [facility] shows p16 have focal staining. Proliferative marker, Ki-67, utilized to evaluate this case. Electronically Signed Izzy Wiggins M.D. Gross Description A. Received in formalin labeled "products of conception," is a 7.5 x 5.5 x 0.8 cm aggregate of red-brown soft tissue fragments. No definite villous tissue or somatic tissue is identified. A publications sales representative portion is submitted in 3 cassettes. B. Received in formalin labeled "fibroids," is a 914 g aggregate of 14 duran, rubbery nodules, consistent with fibroids. The fibroids range from 1.1-12.0 cm in greatest dimension. The cut surface of the larger fibroids displays foci of degeneration. Latin Dance Instructor sections are submitted in 10 cassettes with the largest fibroid in cassettes 7-10. 06/23/201806/23/2018
[2018-06-25] MEDS: LACTATED RINGERS SOLUTION 1,000 ML/1,000 ML INFUS.BAG IV SCH (17:30)
--- NOTE | 2018-06-25 18:25 | PN ---
Teaching Attending Note ATTENDING PHYSICIAN STATEMENT I saw and evaluated the patient. I reviewed the resident's note and discussed the case with the resident. I agree with the resident's findings and plan as documented. SUBJECTIVE: OBJECTIVE: ASSESSMENT AND PLAN:
[2018-06-25] MEDS: SENNOSIDES 8.6MG TABLET (FP) PO SCH (21:57)
[2018-06-26] MEDS: HYDROmorphone HCL 2 MG TABLET PO PRN ×2 (02:14→08:20)
[2018-06-26 08:31] LABS: BASO % 0.4 % (0-2.0); EOS % 3.6 % (0-4.5); HEMATOCRIT 27.2 % (32.4-45.2); LYMPH % 17.4 % (8-40); MCH 28.3 pg (25.7-33.7); MCHC 33.1 g/dl (32.0-36.0); MEAN CELL VOLUME 85.5 fl (80-96); MEAN PLT VOLUME 6.5 fl (7.5-11.1); MONO % 6.8 % (3.8-10.2); NEUT % 71.8 % (42.8-82.8); PLATELET COUNT 208 K/MM3 (134-434); RBC 3.18 M/mm3 (3.60-5.2); RDW 15.3 % (11.6-15.6); WHITE BLOOD COUNT 7.2 K/mm3 (4.0-10.0)
--- NOTE | 2018-06-26 09:09 | DS ---
Physical Examination Vital Signs: Vital Signs Temperature 98.9 F 06/25/18 21:00 Pulse Rate 89 06/25/18 21:00 Respiratory Rate 20 06/25/18 21:00 Blood Pressure 129/76 06/25/18 21:00 O2 Sat by Pulse Oximetry (%) 100 06/22/18 21:00 Labs: CBC, BMP 06/26/18 07:00 Discharge Summary Reason For Visit: FIBROIDS Current Active Problems Anemia (Acute) Leiomyoma (Acute) Retained products of conception (Acute) Condition: Good - Instructions Diet, Activity, Other Instructions: Dr. Reema Wang Bag Grader discharge instructions Physical activity Resume your normal everyday activity as tolerated no heavy lifting or exercise until seen by your surgeon. You may walk unlimited laura of and climb stairs. You may resume driving the car when you feel safe and comfortable behind the wheel and are no longer taking narcotic pain medications. No sexual activity as instructed by Dr. Wang. Wound care If you have a bandage, leave it on, and keep clean and dry for 48-72 hours. After that time discard the outer bandage. If they are tapes (steri-strips) on the skin under the outer bandage leave them in place. They will peel off in the next 7 to 10 days. Do Not Peel them off. You may shower in 48 hours. If there are tapes present on the skin, you may shower over them. When showering allow soap and water to run over the incision, do not scrub the incision. Pat dry well after showering. Diet There are no dietary restrictions. Eat healthy, high-fiber foods. Drink 6 to 8 glasses of liquid each day. This will assist in keeping your bowels are regular. Pain management You may take Tylenol (Acetaminophen) or Ibuprofen (Motrin/Advil) for mild pain. Do not take more than 4g (4000mg) in 24 hours as this can lead to liver damage/ failure. You have been prescribed a narcotic pain medication for moderate to severe pain. Please take as directed. Do not drive, drink alcohol or operate heavy machinery while taking narcotic pain medications. If you find the prescribed dosage is not controlling your pain, please contact the office. Medications: We recommend taking an over the counter iron supplement in conjunction with Vitamin C for the next 3-4 weeks. We also recommend taking an over the counter stool softener to prevention constipation which is a common side effect of narcotic pain medications and Iron supplements. Take as directed according to the it technical specialist's recommendations. Call Dr. aWng for any of the following: Severe pain not relieved by medication Fever of 101 or higher Excessive bleeding or drainage on dressing Inability to urinate IStop Ref # [id number] Call the office at [phone] for an appointment in seven days. Disposition: HOME - Home Medications Comprehensive Discharge Medication List: Ambulatory Orders Albuterol Sulfate [Proair Hfa] 8.5 gm IH BID 05/19/18 Acetaminophen [Tylenol -] 500 mg PO Q8H 06/18/18
--- NOTE | 2018-06-26 09:24 | PN ---
Progress Note, Physician Chief Complaint: Pt doing well. Pain controlled with PO pain meds. Ambulating, voiding, passing flatus/BM. Tolerating diet. Ready to go home. Denies f/c/SOB. no coughing overnight. Feels well. - Current Medication List Current Medications: Active Medications Acetaminophen (Tylenol -) 650 mg PO Q4H PRN PRN Reason: FEVER Albuterol Sulfate (Ventolin Hfa Inhaler -) 2 puff IH BID [facility] Last Admin: 06/25/18 21:57 Dose: 2 puff Albuterol Sulfate (Ventolin 0.083% Nebulizer Soln -) 1 amp NEB Q4H PRN PRN Reason: SHORT OF BREATH/WHEEZING Last Admin: 06/22/18 16:10 Dose: 1 amp Docusate Sodium (Colace -) 100 mg PO BID [facility] Last Admin: 06/25/18 21:57 Dose: 100 mg Hydromorphone HCl (Dilaudid -) 4 mg PO Q6H PRN PRN Reason: PAIN LEVEL 6-10 Last Admin: 06/26/18 08:20 Dose: 4 mg Hydromorphone HCl (Dilaudid -) 2 mg PO Q6H PRN PRN Reason: PAIN LEVEL 4 - 6 Hydromorphone HCl (Dilaudid Vial -) 4 mg IVPB Q6H PRN PRN Reason: PAIN LEVEL 7 - 10 Last Admin: 06/25/18 00:41 Dose: 4 mg Lactated Ringer's (Lactated Ringers Solution) 1,000 ml in 1,000 mls @ 125 mls/ hr IV ASDIR [facility] Last Admin: 06/25/18 17:30 Dose: Not Given Azithromycin 500 mg/ Dextrose 250 mls @ 250 mls/hr IVPB DAILY [facility] Last Admin: 06/25/18 10:00 Dose: 250 mls/hr Ceftriaxone Sodium 1 gm/ (Dextrose) 50 mls @ 100 mls/hr IVPB DAILY [facility]; Protocol Last Admin: 06/25/18 10:00 Dose: 100 mls/hr Ibuprofen (Caldolor Injection -) 600 mg IVPB Q6H PRN PRN Reason: FEVER Ondansetron HCl (Zofran Injection) 4 mg IVPUSH Q6H PRN PRN Reason: NAUSEA Last Admin: 06/23/18 10:27 Dose: 4 mg Promethazine HCl (Phenergan Injection -) 12.5 mg IVPB Q6H PRN PRN Reason: NAUSEA-FOR RESCUE AFTER 15 MIN Senna (Senna -) 1 tab PO HS [facility] Last Admin: 06/25/18 21:57 Dose: 1 tab - Objective Vital Signs: Vital Signs Temperature 98.9 F 06/25/18 21:00 Pulse Rate 89 06/25/18 21:00 Respiratory Rate 20 06/25/18 21:00 Blood Pressure 129/76 06/25/18 21:00 O2 Sat by Pulse Oximetry (%) 100 06/22/18 21:00 Constitutional: Yes: Well Nourished, No Distress, Calm Eyes: Yes: Conjunctiva Clear, EOM Intact HENT: Yes: Atraumatic, Normocephalic Neck: Yes: Trachea Midline Cardiovascular: Yes: Regular Rate and Rhythm Respiratory: Yes: Regular Extremities: Yes: WNL Wound/Incision: Yes: Clean/Dry, Well Approximated Neurological: Yes: Alert, Oriented Psychiatric: Yes: Alert, Oriented Labs: CBC, BMP 06/26/18 07:00 INR, PTT INR 1.13 (0.83-1.09) H 06/24/18 13:30 Fibrinogen 420.0 mg/dL (238-498) 06/24/18 13:30 Problem List - Problems (1) Vaginal bleeding Code(s): N93.9 - ABNORMAL UTERINE AND VAGINAL BLEEDING, UNSPECIFIED (2) Retained products of conception Code(s): VAH4616 - (3) Leiomyoma Code(s): D21.9 - BENIGN NEOPLASM OF CONNECTIVE AND OTHER SOFT TISSUE, UNSP (4) Anemia Code(s): D64.9 - ANEMIA, UNSPECIFIED Qualifiers: Other causes of anemia: acute posthemorrhagic Assessment/Plan Pt doing well - stable plan for discharge home transition to all PO meds await medicine for PO antibiotic regimen D/C home today
[2018-06-26 09:28] LABS: ALBUMIN 2.5 g/dl (3.4-5.0); ALK PHOS 57 U/L (45-117); ANION GAP 10 MMOL/L (8-16); BILIRUBIN,TOTAL 0.4 mg/dL (0.2-1); BLOOD UREA NITROGEN 8 mg/dL (7-18); CALCIUM 8.1 mg/dL (8.5-10.1); CHLORIDE 106 mmol/L (98-107); CO2 27 mmol/L (21-32); CREATININE 0.7 mg/dL (0.55-1.3); GLUCOSE,RANDOM 88 mg/dL (74-106); POTASSIUM 4.1 mmol/L (3.5-5.1); SGOT/AST 39 U/L (15-37); SGPT/ALT 19 U/L (13-61); SODIUM 143 mmol/L (136-145); TOT PROT 5.6 g/dl (6.4-8.2)
[2018-06-26] MEDS: ALBUTEROL SO4 8 GM HFA INHALER IH SCH (10:21)
[2018-06-26] MEDS: DOCUSATE SODIUM 100 MG CAPSULE (FP) PO SCH (10:21)
[2018-06-26] MEDS: CEFTRIAXONE 1 GM in DEXTROSE 5%-WATER - 50 ML IVPB SCH (10:56)
[2018-06-26] MEDS: AZITHROMYCIN IVPB 500 MG in DEXTROSE 5%-WATER - 250 ML IVPB SCH (10:57)
[2018-06-26 11:09] VITALS: BP 123/73; PULSE 84; TEMP 98.4
[2018-06-26] MEDS ORDERED: AZITHROMYCIN 250 MG TABLET PO ONE (11:39)
--- NOTE | 2018-06-26 11:50 | DS ---
Physical Exam: SUBJECTIVE: Patient seen and examined. She reports minimal vaginal bleeding, no coughing, pain is well controlled. She is eager to go home. OBJECTIVE: Vital Signs Period Temp Pulse Resp BP Sys/Dumont Pulse Ox Last 24 Hr 98.4 F-98.9 F 84-93 20-20 123-129/73-77 PHYSICAL EXAM GENERAL: Awake, alert, and fully oriented, in no acute distress. HEAD: Normal with no signs of trauma. EYES: Pupils equal, round and reactive to light, extraocular movements intact, sclera anicteric, conjunctiva clear. No lid lag. EARS, NOSE, THROAT: Ears normal, nares patent, oropharynx clear without exudates. Moist mucous membranes. NECK: Normal range of motion, supple without lymphadenopathy, JVD, or masses. LUNGS: Breath sounds equal, clear to auscultation bilaterally. No wheezes, and no crackles. No accessory muscle use. HEART: rapid rate and regular rhythm, normal S1 and S2 without murmur, rub or gallop. ABDOMEN: Obese, soft, nontender, not distended, normoactive bowel sounds, no guarding, no rebound, no masses. No hepatomegaly or splenomegaly. MUSCULOSKELETAL: Normal range of motion at all joints. No bony deformities or tenderness. No CVA tenderness. UPPER EXTREMITIES: 2+ pulses, warm, well-perfused. No cyanosis. No clubbing. Cap refill <2 seconds. No peripheral edema. LOWER EXTREMITIES: 2+ pulses, warm, well-perfused. No calf tenderness. No peripheral edema. NEUROLOGICAL: No facial droop, tongue midline, normal speech. Normal gait. PSYCHIATRIC: Cooperative. Good eye contact. Appropriate mood and affect. SKIN: Warm, dry, normal turgor, no rashes or lesions noted. LABS Laboratory Results - last 24 hr 06/21/18 06/25/18 06/26/18 11:40 12:25 07:00 WBC 9.3 7.2 RBC 3.16 L 3.18 L Hgb 9.0 L 9.0 L Hct 27.1 L 27.2 L MCV 85.8 85.5 MCH 28.5 28.3 MCHC 33.2 33.1 RDW 15.0 15.3 Plt Count 183 208 MPV 6.5 L 6.5 L Absolute Neuts (auto) 7.2 5.2 Neutrophils % 77.3 71.8 Lymphocytes % 13.9 17.4 D Monocytes % 5.4 6.8 Eosinophils % 3.1 3.6 Basophils % 0.3 0.4 Nucleated RBC % 0 0 Sodium Potassium Chloride Carbon Dioxide Anion Gap BUN Creatinine Creat Clearance w eGFR Random Glucose Calcium Total Bilirubin AST ALT Alkaline Phosphatase Total Protein Albumin Blood Type A POSITIVE Antibody Screen Negative Crossmatch See Detail 06/26/18 07:00 WBC RBC Hgb Hct MCV MCH MCHC RDW Plt Count MPV Absolute Neuts (auto) Neutrophils % Lymphocytes % Monocytes % Eosinophils % Basophils % Nucleated RBC % Sodium 143 Potassium 4.1 Chloride 106 Carbon Dioxide 27 Anion Gap 10 BUN 8 Creatinine 0.7 Creat Clearance w eGFR > 60 Random Glucose 88 Calcium 8.1 L Total Bilirubin 0.4 AST 39 H ALT 19 Alkaline Phosphatase 57 Total Protein 5.6 L Albumin 2.5 L Blood Type Antibody Screen Crossmatch HOSPITAL COURSE: Date of Admission:06/21/18 Date of Discharge: 06/26/18 38 year old female with a PMH significant for asthma, fibroid uterus, recent incomplete with retained products of conception who underwent suction D &C and open abdominal myomectomy on 06/22. Pneumonia - Improved - CT showed RML consolidation, bibasilar atelectasis - Treated with IV ceftriaxone and azithromycin - D/ligia with 2 days of Azithromycin 250 mg PO - Blood and urine cultures negative - Afebrile, no leukocytosis Asthma - Stable - Continue albuterol inhaler and nebs as needed S/p suction D&C for retained products of conception, open abdominal myomectomy for uterine fibroids - Acute blood loss anemia - Improving - H/H 9.0/27.2 - PT/PTT/Fibrinogen WNL - Start OTC Fe supplement with vitamin C for the next 3-4 weeks and OTC stool softener. Patient see by Dr. Wang today, she will follow up with her OP next week. Minutes to complete discharge: 30 Discharge Summary Reason For Visit: FIBROIDS Current Active Problems Anemia (Acute) Leiomyoma (Acute) Retained products of conception (Acute) Condition: Stable - Instructions Diet, Activity, Other Instructions: Dr. Reema Wang Director Telecommunications discharge instructions Physical activity Resume your normal everyday activity as tolerated no heavy lifting or exercise until seen by your surgeon. You may walk unlimited laura of and climb stairs. You may resume driving the car when you feel safe and comfortable behind the wheel and are no longer taking narcotic pain medications. No sexual activity as instructed by Dr. Wang. Wound care If you have a bandage, leave it on, and keep clean and dry for 48-72 hours. After that time discard the outer bandage. If they are tapes (steri-strips) on the skin under the outer bandage leave them in place. They will peel off in the next 7 to 10 days. Do Not Peel them off. You may shower in 48 hours. If there are tapes present on the skin, you may shower over them. When showering allow soap and water to run over the incision, do not scrub the incision. Pat dry well after showering. Diet There are no dietary restrictions. Eat healthy, high-fiber foods. Drink 6 to 8 glasses of liquid each day. This will assist in keeping your bowels are regular. Pain management You may take Tylenol (Acetaminophen) or Ibuprofen (Motrin/Advil) for mild pain. Do not take more than 4g (4000mg) in 24 hours as this can lead to liver damage/ failure. You have been prescribed a narcotic pain medication for moderate to severe pain. Please take as directed. Do not drive, drink alcohol or operate heavy machinery while taking narcotic pain medications. If you find the prescribed dosage is not controlling your pain, please contact the office. Medications: We recommend taking an over the counter iron supplement in conjunction with Vitamin C for the next 3-4 weeks. We also recommend taking an over the counter stool softener to prevention constipation which is a common side effect of narcotic pain medications and Iron supplements. Take as directed according to the strategic partnership manager's recommendations. Call Dr. Wang for any of the following: Severe pain not relieved by medication Fever of 101 or higher Excessive bleeding or drainage on dressing Inability to urinate IStop Ref # [id number] Call the office at [phone] for an appointment in seven days. Disposition: HOME - Home Medications Comprehensive Discharge Medication List: Ambulatory Orders Albuterol Sulfate [Proair Hfa] 8.5 gm IH BID 05/19/18 Acetaminophen [Tylenol -] 500 mg PO Q8H 06/18/18 Azithromycin 250 mg PO DAILY 2 Days #2 tablet 06/26/18 This patient is new to me today: No Emergency Visit: No Critical Care patient: No - Discharge Referral Referred to [facility] Med P.C[facility] No
== END 2018-06-26 14:35 | disposition home or self-care (01) | DRG 742 ==
LOC: JSAMEDAYSX 10:38 → J3W 14:10
PROVIDERS: ADMIT Obstetrics & Gynecology; ATTEND Obstetrics & Gynecology
PROC: 30233N1 Transfusion of Nonautologous Red Blood Cells into Peripheral Vein, Percutaneous Approach (ICD-10-PCS; 2018-06-21)
PROC: 0UB90ZZ Excision of Uterus, Open Approach (ICD-10-PCS; principal; 2018-06-22 11:30)
PROC: 10D17ZZ Extraction of Products of Conception, Retained, Via Natural or Artificial Opening (ICD-10-PCS; 2018-06-22 11:30)
DX: D25.9 Leiomyoma of uterus, unspecified (principal); J18.9 Pneumonia, unspecified organism; O03.39 Incomplete spontaneous abortion with other complications; J98.11 Atelectasis; D62 Acute posthemorrhagic anemia; J45.909 Unspecified asthma, uncomplicated; E66.9 Obesity, unspecified; Z68.39 Body mass index [BMI] 39.0-39.9, adult; N93.9 Abnormal uterine and vaginal bleeding, unspecified
CPT/HCPCS: 36415; 36430; 74178-TC; 80048; 80053; 83735; 84100; 84702; 85025; 85027; 85384; 85610; 85730; 86850; 86900; 86901; 86922; 87040; 87070; 87205; 87899; 88305-TC; 93005; 93010; 94760; J0131; P9038; P9058